=== PATIENT | female | born 1950 | race Caucasian/White ===

== ENCOUNTER 2016-12-07 07:33 | Inpatient (IN) | payer MEDICARE ==
[~2016-12-07] VITALS: Ht 154.9 cm; Wt 71.2 kg
--- NOTE | 2016-12-07 06:34 | PREOP HP ---
DATE OF SERVICE: 12/07/2016 DATE OF SURGERY: 12/07/2016. HISTORY OF PRESENT ILLNESS: The patient is a pleasant 66-year-old who is having difficulty with left-sided low back pain along with pain with radiation to her hip and left posterior lateral thigh. The problem started about 3 months ago spontaneously. She rates her pain and discomfort as 5/10. Sitting seems to make the pain worse. She has difficulty obtaining relief. She takes Percocet and gabapentin. There is no significant problem on the right side. She finds that she is unable to walk any distance at all because of significant pain. PAST MEDICAL HISTORY: Asthma, COPD, emphysema, shingles. PAST SURGICAL HISTORY: Hysterectomy in 1974, food poisoning in ____. FAMILY HISTORY: Cancer. 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 . Denies substance abuse. Denies current tobacco use. Drinks alcohol 1-2 times per month. ALLERGIES: SULFA, PENICILLIN, MERCURY, B-TOX, ____ AND IODINE. CURRENT MEDICATIONS: Premarin, Effexor, Symbicort, Spiriva, Percocet, gabapentin. REVIEW OF SYSTEMS: A 12-point review of systems was obtained and is noncontributory except that mentioned above. PHYSICAL EXAMINATION: NEUROSURGERY EXAMINATION: GENERAL APPEARANCE: Alert, pleasant, in no acute distress. HEAD: Normocephalic and atraumatic. SKIN: Warm and dry. MUSCULOSKELETAL: Lumbar paraspinal muscle bulk is normal, restricted range of motion of the lumbar spine, [id number] tenderness of the lower lumbar spine with palpation, normal range of motion of the lower extremities bilaterally. EXTREMITIES: No clubbing, cyanosis, or edema. NEUROLOGIC: Alert and oriented x 3, normal recent and remote memory, strength 5/5 in bilateral lower extremities, reflexes were present and symmetric in the lower extremities bilaterally, positive straight leg raising on the left, negative straight leg raising on the right, forward stooped antalgic gait. IMAGING: Reviewed. I reviewed a lumbar MRI scan. There is a lumbar ____ at the level I labeled L5-S1, which was labeled L4-L5 on the study. There is prominent central and left-sided disk protrusion. ____ measures greater than 1 cm in greatest diameter and is associated with significant mass effect on the left neural foramen. The level I called L4-L5, which is called L3-L4 on the study, there is anterolisthesis, measures 6 mm and is associated with severe central and foraminal stenosis. There are large hypertrophic degenerative facets. The spinal canal is virtually obliterated at this level. ASSESSMENT: 1. Intervertebral disk disorder with radiculopathy, lumbosacral region. 2. Spinal stenosis, lumbar region. 3. Spondylolisthesis, lumbar region. PLAN: ____ significant problem. She had a left lumbar radiculopathy problem at L5-S1 and she has spondylolisthesis with ____ severe stenosis at L4-L5. I recommended lumbar microsurgery on the left at L5-S1 with removal of herniated disk and decompression of the nerve root at that level combined with ____ L4-L5, which will include the majority of facet bilaterally to decompress ____ spondylolisthesis combined with posterolateral fusion. She will need an anterior diskectomy and fusion in addition to ____. I discussed the surgery with her in detail. I outlined the technique of the operation as well as the expected postoperative course. She understands. We will make the arrangements. DEBRA CORRIGAN MD DR: JENNIFER/peyton JOB#: [id number] / [id number]
[~2016-12-07 07:33] MED LIST: BACITRACIN 50,000 UNIT in IV NORMAL SALINE 1000ML BAG 1,000 ML IRR ONE; BUDE10.2 IH; ESTR1.25 PO; GABA-587 PO; IV RINGERS,LACTATED 1000ML 1,000 ML IV SCH; LIDOCAINE 1% 1 ML SYRINGE. ID PRN; ONDANSETRON PF 4 MG/2 ML VIAL. IV PRN; PROCHLORPERAZINE 10 MG/2 ML VIAL. IV PRN; TIOT18CA IH; VANCOMYCIN 1GM IVPB FOR OMNI 250 ML IV PRN; VENL75CA PO; VENTOLIN HFA18 GM INH; fentaNYL PF VIAL 100 MCG/2 ML VIAL IV PRN
[2016-12-07] MEDS ORDERED: BUPIVAC MPF-EPI 0.5%-1:200000 30 ML VIAL. ONE (07:47)
[2016-12-07] MEDS ORDERED: KETOROLAC 60 MG/2 ML INJ FOR OR. ONE (07:47)
[2016-12-07] MEDS ORDERED: GELATIN SPONGE SIZE 100. ONE (07:47)
[2016-12-07] MEDS ORDERED: THROMBIN TOPICAL 20,000 UNIT SPRAY.SYRN KIT TP ONE (07:48)
--- NOTE | 2016-12-07 08:46 | EKG ---
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
[2016-12-07] MEDS: fentaNYL PF VIAL 100 MCG/2 ML VIAL IV PRN ×4 (09:27→18:23)
--- NOTE | 2016-12-07 10:28 | RAD ---
CT of the lumbar spine without contrast, 12/07/2016: History: Lumbar stenosis, herniated disc, brain lab study Noncontrast scans were obtained with multiplanar reconstructions produced. The data was transferred to the operating room to aid in the patient's stereotactically guided surgery. The following findings are delineated: 1. For purposes of this report the lowest obvious disc space will be considered to be L5-S1. Utilizing this number in system, there is a small accessory rib on the right at L1. 2. There is a grade 1 spondylolisthesis at L4-5 due to severe facet joint arthropathy. There is associated disc space narrowing with a vacuum disc phenomena at L4-5. There is moderate broad-based posterior disc protrusion at L4-5. The combination of findings is causing moderate central spinal stenosis and moderate bilateral foraminal encroachment at this level. 3. No significant abnormality is evident at the L1-2 level. 4. At L2-3 there is a small posterior disc protrusion centered just to the right of midline. This produces mild narrowing of the inferior aspect of the right neural foramen at this level. The thecal sac measures 10 mm in AP diameter at the midline. 5. At L3-4 there are moderate hypertrophic degenerative changes involving the facet joints. There is mild posterior disc bulging. The combination of findings causes borderline narrowing of the central spinal canal which measures 9 mm in AP diameter at the midline. There is mild bilateral inferior foraminal narrowing. 6. At L5-S1 there is a mild vacuum disc phenomena. There are moderate hypertrophic degenerative changes involving the facet joints. There is a small to moderate-sized posterior disc protrusion centered just to the left of midline. This is producing mild narrowing of the thecal sac which measures 9 mm in AP diameter at the midline. There is mild to moderate bilateral foraminal encroachment. 7. There is calcific plaquing of the aorta. Colonic diverticula are noted. PQRS Compliance Statement: One or more of the following individualized dose reduction techniques were utilized for this examination: 1. Automated exposure control 2. Adjustment of the mA and/or kV according to patient size 3. Use of iterative reconstruction technique
[2016-12-07] MEDS ORDERED: PROPOFOL 100 ML IV ONE (10:40)
[2016-12-07] MEDS ORDERED: DESFLURANE > 120 MINUTES IH ONE (10:50)
[2016-12-07] MEDS ORDERED: fentaNYL PF VIAL 100 MCG/2 ML VIAL ONE (10:51)
[2016-12-07] MEDS ORDERED: MIDAZOLAM HCL/PF 2 MG/2 ML VIAL. ONE (10:51)
[2016-12-07] MEDS ORDERED: ROCURONIUM 50 MG/5 ML VIAL. ONE (10:51)
[2016-12-07] MEDS ORDERED: GLYCOPYRROLATE 1 MG/5 ML VIAL. ONE (10:51)
[2016-12-07] MEDS ORDERED: NEOSTIGMINE METHYLSULFATE 5 MG/5 ML SYRINGE. ONE (10:51)
[2016-12-07] MEDS ORDERED: REMIFENTANIL 2 MG VIAL. IV ONE (10:51)
[2016-12-07] MEDS ORDERED: PHENYLEPHRINE 10 MG/ML VIAL. ONE ×2 (10:52→15:06)
[2016-12-07] MEDS ORDERED: DEXAMETHASONE SOD PHOS 20 MG/5 ML VIAL. ONE (10:52)
[2016-12-07] MEDS ORDERED: ONDANSETRON PF 4 MG/2 ML VIAL. ONE (10:52)
[2016-12-07] MEDS ORDERED: PROPOFOL 20 ML IV ONE (10:52)
[2016-12-07] MEDS ORDERED: 0.9 % SODIUM CHLORIDE 50 ML VIAL. IJ ONE (10:52)
[2016-12-07] MEDS ORDERED: MINERAL OIL/PETROLATUM,WHITE OPHTH OINT 3.5GM TUBE. ONE (10:52)
[2016-12-07] MEDS ORDERED: LIDOCAINE 2% 100 MG/5 ML SYRINGE. ONE (10:52)
[2016-12-07] MEDS ORDERED: REMIFENTANIL 1 MG VIAL. IV ONE (14:27)
[2016-12-07] MEDS ORDERED: PROPOFOL 50 ML IV ONE (14:42)
[2016-12-07] MEDS: MORPHINE SULFATE 2 MG/ML DISP.SYRIN. IV PRN ×2 (18:01→18:26)
[2016-12-07] MEDS ORDERED: diphenhydrAMINE 50 MG/ML VIAL IV PRN (18:15)
[2016-12-07] MEDS ORDERED: NALOXONE 0.4 MG/ML VIAL. IV PRN (18:15)
[2016-12-07] MEDS ORDERED: ZOLPIDEM 5 MG TABLET. PO PRN (18:15)
[2016-12-07] MEDS ORDERED: diphenhydrAMINE HCL 25 MG CAPSULE PO PRN (18:15)
[2016-12-07] MEDS ORDERED: MAG HYDROX/ALUMINUM HYD/SIMETH 30 ML ORAL.SUSP PO PRN (18:15)
[2016-12-07] MEDS ORDERED: 0.9 % SODIUM CHLORIDE 10 ML DISP.SYRIN. IV PRN (18:15)
[2016-12-07] MEDS ORDERED: MAGNESIUM HYDROXIDE 2,400 MG/30 ML ORAL.SUSP. PO PRN (18:15)
[2016-12-07] MEDS ORDERED: CALCIUM CARBONATE 500 MG TAB.CHEW PO PRN (18:15)
[2016-12-07] MEDS ORDERED: OXYCODONE/APAP 5/325 TABLET. PO PRN ×2 (18:15)
[2016-12-07] MEDS ORDERED: ONDANSETRON PF 4 MG/2 ML VIAL. IV PRN (18:15)
[2016-12-07] MEDS ORDERED: ACETAMINOPHEN 325 MG TABLET. PO PRN (18:15)
[2016-12-07] MEDS: HYDROmorphone 2 MG/ML VIAL IV PRN ×4 (18:49→19:30)
[2016-12-07 19:45] VITALS: BP 131/78
[2016-12-07] MEDS: POTASSIUM CL 20MEQ D5-0.45NACL 1,000 ML IV SCH (19:56)
[2016-12-07 20:00] VITALS: BP 117/66
[2016-12-07] MEDS ORDERED: ALBUTEROL SULFATE 2.5 MG/3 ML NEBU. NEB PRN (20:00)
[2016-12-07 20:15] VITALS: BP_SYST 131; BP_SYST 135; BP_DIAS 78; BP_DIAS 88
[2016-12-07 20:30] VITALS: BP 119/71
[2016-12-07 21:00] VITALS: BP 123/62
[2016-12-07] MEDS ORDERED: NON FORMULARY ITEM (Budesonide/Formoterol Fumarate (Symbicort 160-4.5 Mcg Inhaler) 2 PUFF) IH SCH (21:00)
[2016-12-07] MEDS ORDERED: NON FORMULARY ITEM (Albuterol Sulfate (Ventolin Hfa Inhaler) 2 PUFF) INH SCH (21:00)
[2016-12-07] MEDS: IPRATRPIUM/ALBUTEROL 0.5/2.5MG 3 ML NEBU. NEB SCH (21:37)
[2016-12-07] MEDS: METHOCARBAMOL 750 MG TABLET PO SCH (21:51)
[2016-12-07] MEDS: GABAPENTIN 400 MG CAPSULE. PO SCH (21:51)
[2016-12-07 23:22] VITALS: BP 98/46
[2016-12-08] MEDS ORDERED: VANCOMYCIN 1 GM in IV NORMAL SALINE 250ML 250 ML IV ONE ×2
[2016-12-08 03:15] VITALS: BP 115/60
[2016-12-08 06:22] VITALS: BP 91/52
[2016-12-08] MEDS: BUDESONIDE 0.5 MG/2 ML NEBU. NEB SCH ×2 (07:21→18:14)
[2016-12-08] MEDS: IPRATRPIUM/ALBUTEROL 0.5/2.5MG 3 ML NEBU. NEB SCH ×4 (07:21→18:14)
[2016-12-08] MEDS: DOCUSATE SODIUM 100 MG CAPSULE. PO SCH ×2 (08:05→21:20)
[2016-12-08] MEDS: METHOCARBAMOL 750 MG TABLET PO SCH ×3 (08:05→21:20)
[2016-12-08] MEDS: GABAPENTIN 400 MG CAPSULE. PO SCH ×2 (08:05→21:20)
[2016-12-08] MEDS ORDERED: VENLAFAXINE XR 37.5 MG CAP.ER.24H. PO SCH (09:00)
[2016-12-08] MEDS: POTASSIUM CL 20MEQ D5-0.45NACL 1,000 ML IV SCH ×2 (09:20→22:40)
[2016-12-08] MEDS: VENLAFAXINE XR 37.5 MG CAP.ER.24H. PO SCH (09:36)
[2016-12-08] MEDS ORDERED: OXYCODONE/APAP 7.5/325 TABLET. PO PRN (09:45)
--- NOTE | 2016-12-08 10:08 | PDOC ---
PROGRESS NOTES Subjective Subjective POD #1 up in chair ambulated with PT back/ incisional pain left hip and thigh pain improved but c/o lateral lower leg pain Objective Objective Vital Signs Date Time Temp Pulse Resp B/P Pulse Ox O2 Delivery O2 Flow Rate FiO2 12/08/16 08:32 Nasal Cannula 1.0 12/08/16 08:15 100 12/08/16 07:15 20 12/08/16 06:22 97.5 90 91/52 97.5 Intake and Output 12/08/16 06:59 Intake Total 3560 ml Output Total 775 ml Balance 2785 ml Intake Oral 240 ml IV Total 3050 ml Blood Product IV Normal Saline Flush 270 ml Output Urine Total 675 ml Stool Total 0 ml Estimated Blood Loss 100 ml Physical Exam General: Alert, Oriented X3, Cooperative MUSCULOSKELETAL: Other ([place]ARR[place]) Neuro: Normal speech Psych/Mental Status: Mental status NL Skin: Other (dressing dry and iintact, flat) Assessment Assessment Problems Medical Problems: (1) Spondylolisthesis of lumbar region Status: Acute Plan Plan of Care encouraged increased activity as tolerated Continue PT/ OT LSO likely DC tomorrow Comment Review of Relevant I have reviewed the following items ervin (where applicable) has been applied. Medications Current Medications Ondansetron HCl (Zofran) 4 mg PRN Q6HRS PRN IV NAUSEA/VOMITING; Start 12/07/16 at 07:00; Stop 12/08/16 at 06:59; Status DC Fentanyl Citrate (Fentanyl 2ml Vial) 25 mcg PRN Q5MIN PRN IV MILD PAIN; Start 12/07/16 at 07:00; Stop 12/08/16 at 06:59; Status DC Fentanyl Citrate (Fentanyl 2ml Vial) 50 mcg PRN Q5MIN PRN IV MODERATE PAIN Last administered on 12/07/16 18:23; Start 12/07/16 at 07:00; Stop 12/08/16 at 06:59; Status DC Morphine Sulfate 1 mg 1 mg PRN Q10MIN PRN IV SEVERE PAIN Last administered on 18:26; Start 12/07/16 at 07:00; Stop 12/08/16 at 06:59; Status DC Lactated Ringer's (Iv Lactated Ringers) 1,000 ml @ 0 mls/hr Q0M IV ; Start at 07:00; Stop 12/07/16 at 18:59; Status DC Lidocaine HCl 2 ml PRN 1X PRN ID PRIOR TO IV START; Start 12/07/16 at 07:00; Stop 12/08/16 at 06:59; Status DC Hydromorphone HCl (Dilaudid) 0.5 mg PRN Q10MIN PRN IV SEV PAIN, Second choice Last administered on 12/07/16 19:30; Start 12/07/16 at 07:00; Stop 12/08/16 at 06:59; Status DC Prochlorperazine Edisylate 5 mg 5 mg PACU PRN PRN IV NAUSEA, MRX1; Start at 07:00; Stop 12/08/16 at 06:59; Status DC Bacitracin 80651 unit/Sodium Chloride 1,000 ml @ 1,000 mls/hr 1X PERIOP ONCE IRR Last administered on 12/07/16 12:42; Start 12/07/16 at 06:00; Stop at 06:59; Status DC Vancomycin HCl 250 ml @ 250 mls/hr 1X PREOP PRN IV PRIOR TO PROCEDURE Last administered on 12/07/16 11:55; Start 12/07/16 at 06:00; Stop 12/07/16 at 18:00 ; Status DC Bupivacaine HCl/ Epinephrine Bitart (Sensorcain-Mpf Epi 0.5%-1:[id number]) 30 ml STK -MED ONCE .ROUTE Last administered on 12/07/16 12:42; Start 12/07/16 at 07:47 ; Stop 12/07/16 at 07:48; Status DC Gelatin (Gelfoam Size 100) 1 each STK-MED ONCE .ROUTE Last administered on 12:42; Start 12/07/16 at 07:47; Stop 12/07/16 at 07:48; Status DC Ketorolac Tromethamine (Toradol For Or Only) 60 mg STK-MED ONCE .ROUTE Last administered on 12/07/16 12:42; Start 12/07/16 at 07:47; Stop 12/07/16 at 07:48 ; Status DC Thrombin 79248 unit 20,000 unit STK-MED ONCE TP Last administered on 12/07/16 12:42; Start 12/07/16 at 07:48; Stop 12/07/16 at 07:49; Status DC Propofol (Diprivan) 100 ml @ As Directed STK-MED ONCE IV ; Start 12/07/16 at 10 :40; Stop 12/07/16 at 10:41; Status DC Desflurane (Suprane) 90 ml STK-MED ONCE IH ; Start 12/07/16 at 10:50; Stop 12/07 at 10:51; Status DC Midazolam HCl (Versed) 2 mg STK-MED ONCE .ROUTE ; Start 12/07/16 at 10:51; Stop 12/07/16 at 10:52; Status DC Remifentanil HCl (Ultiva) 2 mg STK-MED ONCE IV ; Start 12/07/16 at 10:51; Stop 12/07/16 at 10:52; Status DC Fentanyl Citrate (Fentanyl 2ml Vial) 100 mcg STK-MED ONCE .ROUTE ; Start at 10:51; Stop 12/07/16 at 10:52; Status DC Glycopyrrolate (Robinul) 1 mg STK-MED ONCE .ROUTE ; Start 12/07/16 at 10:51; Stop 12/07/16 at 10:52; Status DC Neostigmine Methylsulfate 5 mg STK-MED ONCE .ROUTE ; Start 12/07/16 at 10:51; Stop 12/07/16 at 10:52; Status DC Rocuronium Quentin 50 mg 50 mg STK-MED ONCE .ROUTE ; Start 12/07/16 at 10:51; Stop 12/07/16 at 10:52; Status DC Propofol (Diprivan) 20 ml @ As Directed STK-MED ONCE IV ; Start 12/07/16 at 10: 52; Stop 12/07/16 at 10:53; Status DC Lidocaine HCl (Lidocaine HCl 2% Abboject) 100 mg STK-MED ONCE .ROUTE ; Start at 10:52; Stop 12/07/16 at 10:53; Status DC Ondansetron HCl (Zofran) 4 mg STK-MED ONCE .ROUTE ; Start 12/07/16 at 10:52; Stop 12/07/16 at 10:53; Status DC Dexamethasone Sodium Phosphate (Decadron) 20 mg STK-MED ONCE .ROUTE ; Start at 10:52; Stop 12/07/16 at 10:53; Status DC Phenylephrine HCl (Santiago-Synephrine Inj) 10 mg STK-MED ONCE .ROUTE ; Start at 10:52; Stop 12/07/16 at 10:53; Status DC Multi-Ingred Cream/Lotion/Oil/ Oint (Artificial Tears Eye Oint) 7 preeti STK-MED ONCE .ROUTE ; Start 12/07/16 at 10:52; Stop 12/07/16 at 10:53; Status DC Sodium Chloride (Sodium Chloride) 50 ml STK-MED ONCE IJ ; Start 12/07/16 at 10: 52; Stop 12/07/16 at 10:53; Status DC Remifentanil HCl 1 mg 1 mg STK-MED ONCE IV ; Start 12/07/16 at 14:27; Stop 12/07 at 14:28; Status DC Propofol (Diprivan) 50 ml @ As Directed STK-MED ONCE IV ; Start 12/07/16 at 14: 42; Stop 12/07/16 at 14:43; Status DC Phenylephrine HCl (Santiago-Synephrine Inj) 10 mg STK-MED ONCE .ROUTE ; Start at 15:06; Stop 12/07/16 at 15:07; Status DC Non-Formulary Medication 2 puff QID INH FOR ASTHMA; Start 12/07/16 at 21:00; Status UNV Non-Formulary Medication 2 puff BID IH ; Start 12/07/16 at 21:00; Status UNV Estrogens Conjugated (Premarin) 1.25 mg DAILY PO ; Start 12/08/16 at 09:00 Gabapentin (Neurontin) 400 mg BID PO Last administered on 12/08/16 08:05; Start 12/07/16 at 21:00 Albuterol/ Ipratropium (Duoneb) 3 ml RTQID NEB Last administered on 12/08/16 07:21; Start 12/07/16 at 20:00 Venlafaxine HCl (Effexor Xr) 75 mg DAILY PO ; Start 12/08/16 at 09:00; Stop at 09:00; Status DC Fentanyl Citrate 50 mcg 50 mcg PRN Q2HR PRN IV PAIN Last administered on 00:00; Start 12/07/16 at 18:15 Vancomycin HCl/ Sodium Chloride (Iv Sodium Chloride 0.9% 250ml) 250 ml @ 250 mls/hr 1X ONCE IV Last administered on 12/07/16 23:53; Start 12/08/16 at 00: 00; Stop 12/08/16 at 00:59; Status DC Acetaminophen (Tylenol) 650 mg PRN Q6HRS PRN PO MILD PAIN / TEMP; Start at 18:15 Al Hydroxide/Mg Hydroxide (Mylanta Plus Xs) 30 ml PRN Q3HRS PRN PO HEARTBURN / GAS; Start 12/07/16 at 18:15 Calcium Carbonate/ Glycine (Tums) 500 mg PRN Q3HRS PRN PO INDIGESTION; Start at 18:15 Diphenhydramine HCl (Benadryl) 25 mg PRN Q6HRS PRN PO ITCHING; Start 12/07/16 at 18:15 Diphenhydramine HCl (Benadryl) 25 mg PRN Q6HRS PRN IV ITCHING; Start 12/07/16 at 18:15 Zolpidem Tartrate (Ambien) 5 mg PRN QHS PRN PO INSOMNIA, MAY REPEAT IN 1HR; Start 12/07/16 at 18:15 Naloxone HCl (Narcan) 0.1 mg PRN Q2MIN PRN IV ADMIN; Start 12/07/16 at 18:15 Sodium Chloride 3 ml 3 ml QSHIFT PRN IV AFTER MEDS AND BLOOD DRAWS; Start 12/07 at 18:15 Potassium Chloride/Dextrose/ Sod Cl (KCl 20 Meq In D5W-1/2 NS) 1,000 ml @ 75 mls/hr [id number] IV Last administered on 12/07/16 19:56; Start 12/07/16 at 20:00 Oxycodone/ Acetaminophen (Percocet 5/325) 1 tab PRN Q4HRS PRN PO MILD PAIN, 1ST CHOICE Last administered on 12/08/16 03:29; Start 12/07/16 at 18:15; Stop 12/08/16 at 09:44; Status DC Oxycodone/ Acetaminophen (Percocet 5/325) 2 tab PRN Q4HRS PRN PO MODERATE PAIN , SEVERE PAIN Last administered on 12/08/16 07:15; Start 12/07/16 at 18:15; Stop 12/08/16 at 09:44; Status DC Methocarbamol (Robaxin) 750 mg TID PO Last administered on 12/08/16 08:05; Start 12/07/16 at 21:00 Docusate Sodium (Colace) 100 mg BID PO Last administered on 12/08/16 08:05; Start 12/08/16 at 09:00 Magnesium Hydroxide (Milk Of Magnesia) 2,400 mg PRN Q12HR PRN PO CONSTIPATION; Start 12/07/16 at 18:15 Ondansetron HCl (Zofran) 4 mg PRN Q6HRS PRN IV NAUESA, 1ST CHOICE; Start at 18:15 Albuterol Sulfate (Ventolin Neb Soln) 2.5 mg PRN QID PRN NEB SHORTNESS OF BREATH; Start 12/07/16 at 20:00 Budesonide (Pulmicort) 0.5 mg RTBID NEB Last administered on 12/08/16 07:21; Start 12/08/16 at 08:00 Venlafaxine HCl (Effexor Xr) 150 mg DAILY PO Last administered on 12/08/16 09: 36; Start 12/08/16 at 09:00 Oxycodone/ Acetaminophen (Percocet 7.5/ 325) 1 tab PRN Q4HRS PRN PO MILD-MOD PAIN; Start 12/08/16 at 09:45 Oxycodone/ Acetaminophen (Percocet 7.5/ 325) 2 tab PRN Q4HRS PRN PO SEVERE PAIN ; Start 12/08/16 at 09:45 Active Scripts Active Reported Gabapentin 400 Mg Capsule 400 Mg PO BID Effexor Xr (Venlafaxine Hcl) 75 Mg Cap.er.24h 90 Mg PO DAILY Premarin (Estrogens, Conjugated) 1.25 Mg Tablet 1 Tab PO DAILY Spiriva (Tiotropium Quentin) 18 Mcg Cap.w.dev 2 Inh IH DAILY Symbicort 160-4.5 Mcg Inhaler (Budesonide/Formoterol Fumarate) 10.2 Gm Hfa.aer.ad 2 Puff IH BID Ventolin Hfa Inhaler (Albuterol Sulfate) 18 Gm Hfa.aer.ad 2 Puff INH QID Vitals/I & O Vital Sign - Last 24 Hours 12/07/16 12/07/16 12/07/16 12/07/16 10:16 17:45 17:45 18:00 Temp 98.9 98.9 Pulse 104 104 Resp 21 B/P 152/37 137/59 Pulse Ox 96 100 97 O2 Delivery Room Air Simple Mask Mask Simple Mask O2 Flow Rate 10 10 10 12/07/16 12/07/16 12/07/16 12/07/16 18:01 18:09 18:15 18:15 Pulse 114 Resp 21 B/P 145/75 Pulse Ox 98 98 96 O2 Delivery Simple Mask Simple Mask Simple Mask Nasal Cannula O2 Flow Rate 10.0 10.0 10 3 12/07/16 12/07/16 12/07/16 12/07/16 18:23 18:26 18:30 18:45 Pulse 108 98 Resp 21 20 20 20 B/P 134/56 148/70 Pulse Ox 98 98 94 93 O2 Delivery Simple Mask Simple Mask Nasal Cannula Nasal Cannula O2 Flow Rate 10.0 10.0 3 3 12/07/16 12/07/16 12/07/16 12/07/16 18:49 19:00 19:02 19:15 Temp 98.5 98.5 Pulse 102 98 Resp 20 18 20 18 B/P 119/69 145/67 Pulse Ox 94 96 94 96 O2 Delivery Nasal Cannula Nasal Cannula Nasal Cannula Nasal Cannula O2 Flow Rate 3.0 3 3.0 3 12/07/16 12/07/16 12/07/16 12/07/16 19:20 19:30 19:45 20:00 Temp 97.6 97.6 Pulse 108 106 Resp 16 B/P 131/78 117/66 Pulse Ox 94 94 94 94 O2 Delivery Nasal Cannula Nasal Cannula Nasal Cannula Nasal Cannula O2 Flow Rate 3.0 3.0 3.0 3.0 12/07/16 12/07/16 12/07/16 12/07/16 20:15 20:15 20:15 20:30 Temp 97.6 97.6 Pulse 100 108 105 Resp B/P 135/88 131/78 119/71 Pulse Ox 94 94 90 O2 Delivery Nasal Cannula Nasal Cannula Nasal Cannula Nasal Cannula O2 Flow Rate 3.0 3.0 3.0 3.0 12/07/16 12/07/16 12/07/16 12/08/16 21:00 21:37 23:22 00:00 Pulse 101 103 Resp 16 17 20 B/P 123/62 98/46 Pulse Ox 92 94 O2 Delivery Nasal Cannula Nasal Cannula Nasal Cannula Nasal Cannula O2 Flow Rate 3.0 3.0 3.0 3.0 12/08/16 12/08/16 12/08/16 12/08/16 00:30 03:15 03:29 04:30 Pulse 100 Resp 20 16 20 20 B/P 115/60 Pulse Ox 94 O2 Delivery Nasal Cannula Nasal Cannula O2 Flow Rate 3.0 3.0 12/08/16 12/08/16 12/08/16 12/08/16 06:22 07:15 07:22 08:15 Temp 97.5 97.5 Pulse 90 Resp 17 20 B/P 91/52 Pulse Ox 98 100 100 O2 Delivery Nasal Cannula Nasal Cannula Nasal Cannula O2 Flow Rate 3.0 3.0 1.0 12/08/16 08:32 O2 Delivery Nasal Cannula O2 Flow Rate 1.0 Intake and Output 12/07/16 12/07/16 12/08/16 14:59 22:59 06:59 Intake Total 250 ml 2800 ml 510 ml Output Total 475 ml 300 ml Balance 250 ml 2325 ml 210 ml DEBRA CORRIGAN MD Dec 08, 2016 10:08
[2016-12-08 11:07] VITALS: BP 114/68
[2016-12-08] MEDS: ESTROGENS, CONJUGATED 0.625 MG TABLET PO SCH (12:02)
[2016-12-08] MEDS: OXYCODONE/APAP 7.5/325 TABLET. PO PRN ×2 (12:04→17:23)
[2016-12-08 15:15] VITALS: BP 103/51
[2016-12-08 18:00] VITALS: BP 99/54
[2016-12-08] MEDS: fentaNYL PF VIAL 100 MCG/2 ML VIAL IV PRN ×2 (19:04)
[2016-12-08 23:11] VITALS: BP 103/47
[2016-12-09 03:24] VITALS: BP 102/75
[2016-12-09 06:10] VITALS: BP 107/61
[2016-12-09] MEDS: IPRATRPIUM/ALBUTEROL 0.5/2.5MG 3 ML NEBU. NEB SCH ×4 (07:11→20:07)
[2016-12-09] MEDS: BUDESONIDE 0.5 MG/2 ML NEBU. NEB SCH ×2 (07:11→20:07)
[2016-12-09] MEDS: fentaNYL PF VIAL 100 MCG/2 ML VIAL IV PRN (07:34)
[2016-12-09] MEDS: METHOCARBAMOL 750 MG TABLET PO SCH ×3 (08:44→21:06)
[2016-12-09] MEDS: ESTROGENS, CONJUGATED 0.625 MG TABLET PO SCH (08:44)
[2016-12-09] MEDS: VENLAFAXINE XR 37.5 MG CAP.ER.24H. PO SCH (08:45)
[2016-12-09] MEDS: DOCUSATE SODIUM 100 MG CAPSULE. PO SCH ×2 (08:45→21:06)
[2016-12-09] MEDS: GABAPENTIN 400 MG CAPSULE. PO SCH ×2 (08:45→21:06)
[2016-12-09] MEDS: OXYCODONE/APAP 7.5/325 TABLET. PO PRN (08:46)
--- NOTE | 2016-12-09 10:03 | PDOC ---
PROGRESS NOTES Subjective Subjective resting in bed c/o left lateral thigh pain and incisional pain denies SOA Objective Objective Vital Signs Date Time Temp Pulse Resp B/P Pulse Ox O2 Delivery O2 Flow Rate FiO2 12/09/16 08:46 16 93 Nasal Cannula 2.0 12/09/16 06:10 99.4 105 107/61 99.4 Intake and Output 12/09/16 07:00 Intake Total 920 ml Output Total 370 ml Balance 550 ml Intake Oral 920 ml Output Urine Total 370 ml # Voids 3 Physical Exam General: Alert, Oriented X3, Cooperative Lungs: Other (2 L NC) MUSCULOSKELETAL: Other ([place]) Neuro: Normal speech Skin: Other (dressing C,D,I, flat) Assessment Assessment Problems Medical Problems: (1) Spondylolisthesis of lumbar region Status: Acute Plan Plan of Care increased oxycodone add Medrol dose pack Chest X ray encouraged DB and C/ IS Comment Review of Relevant I have reviewed the following items ervin (where applicable) has been applied. Medications Current Medications Ondansetron HCl (Zofran) 4 mg PRN Q6HRS PRN IV NAUSEA/VOMITING; Start 12/07/16 at 07:00; Stop 12/08/16 at 06:59; Status DC Fentanyl Citrate (Fentanyl 2ml Vial) 25 mcg PRN Q5MIN PRN IV MILD PAIN; Start 12/07/16 at 07:00; Stop 12/08/16 at 06:59; Status DC Fentanyl Citrate (Fentanyl 2ml Vial) 50 mcg PRN Q5MIN PRN IV MODERATE PAIN Last administered on 12/07/16 18:23; Start 12/07/16 at 07:00; Stop 12/08/16 at 06:59; Status DC Morphine Sulfate 1 mg 1 mg PRN Q10MIN PRN IV SEVERE PAIN Last administered on 18:26; Start 12/07/16 at 07:00; Stop 12/08/16 at 06:59; Status DC Lactated Ringer's (Iv Lactated Ringers) 1,000 ml @ 0 mls/hr Q0M IV ; Start at 07:00; Stop 12/07/16 at 18:59; Status DC Lidocaine HCl 2 ml PRN 1X PRN ID PRIOR TO IV START; Start 12/07/16 at 07:00; Stop 12/08/16 at 06:59; Status DC Hydromorphone HCl (Dilaudid) 0.5 mg PRN Q10MIN PRN IV SEV PAIN, Second choice Last administered on 12/07/16 19:30; Start 12/07/16 at 07:00; Stop 12/08/16 at 06:59; Status DC Prochlorperazine Edisylate 5 mg 5 mg PACU PRN PRN IV NAUSEA, MRX1; Start at 07:00; Stop 12/08/16 at 06:59; Status DC Bacitracin 25788 unit/Sodium Chloride 1,000 ml @ 1,000 mls/hr 1X PERIOP ONCE IRR Last administered on 12/07/16 12:42; Start 12/07/16 at 06:00; Stop at 06:59; Status DC Vancomycin HCl 250 ml @ 250 mls/hr 1X PREOP PRN IV PRIOR TO PROCEDURE Last administered on 12/07/16 11:55; Start 12/07/16 at 06:00; Stop 12/07/16 at 18:00 ; Status DC Bupivacaine HCl/ Epinephrine Bitart (Sensorcain-Mpf Epi 0.5%-1:727696) 30 ml STK -MED ONCE .ROUTE Last administered on 12/07/16 12:42; Start 12/07/16 at 07:47 ; Stop 12/07/16 at 07:48; Status DC Gelatin (Gelfoam Size 100) 1 each STK-MED ONCE .ROUTE Last administered on 12:42; Start 12/07/16 at 07:47; Stop 12/07/16 at 07:48; Status DC Ketorolac Tromethamine (Toradol For Or Only) 60 mg STK-MED ONCE .ROUTE Last administered on 12/07/16 12:42; Start 12/07/16 at 07:47; Stop 12/07/16 at 07:48 ; Status DC Thrombin 35764 unit 20,000 unit STK-MED ONCE TP Last administered on 12/07/16 12:42; Start 12/07/16 at 07:48; Stop 12/07/16 at 07:49; Status DC Propofol (Diprivan) 100 ml @ As Directed STK-MED ONCE IV ; Start 12/07/16 at 10 :40; Stop 12/07/16 at 10:41; Status DC Desflurane (Suprane) 90 ml STK-MED ONCE IH ; Start 12/07/16 at 10:50; Stop 12/07 at 10:51; Status DC Midazolam HCl (Versed) 2 mg STK-MED ONCE .ROUTE ; Start 12/07/16 at 10:51; Stop 12/07/16 at 10:52; Status DC Remifentanil HCl (Ultiva) 2 mg STK-MED ONCE IV ; Start 12/07/16 at 10:51; Stop 12/07/16 at 10:52; Status DC Fentanyl Citrate (Fentanyl 2ml Vial) 100 mcg STK-MED ONCE .ROUTE ; Start at 10:51; Stop 12/07/16 at 10:52; Status DC Glycopyrrolate (Robinul) 1 mg STK-MED ONCE .ROUTE ; Start 12/07/16 at 10:51; Stop 12/07/16 at 10:52; Status DC Neostigmine Methylsulfate 5 mg STK-MED ONCE .ROUTE ; Start 12/07/16 at 10:51; Stop 12/07/16 at 10:52; Status DC Rocuronium [place] 50 mg 50 mg STK-MED ONCE .ROUTE ; Start 12/07/16 at 10:51; Stop 12/07/16 at 10:52; Status DC Propofol (Diprivan) 20 ml @ As Directed STK-MED ONCE IV ; Start 12/07/16 at 10: 52; Stop 12/07/16 at 10:53; Status DC Lidocaine HCl (Lidocaine HCl 2% Abboject) 100 mg STK-MED ONCE .ROUTE ; Start at 10:52; Stop 12/07/16 at 10:53; Status DC Ondansetron HCl (Zofran) 4 mg STK-MED ONCE .ROUTE ; Start 12/07/16 at 10:52; Stop 12/07/16 at 10:53; Status DC Dexamethasone Sodium Phosphate (Decadron) 20 mg STK-MED ONCE .ROUTE ; Start at 10:52; Stop 12/07/16 at 10:53; Status DC Phenylephrine HCl ([place]-Synephrine Inj) 10 mg STK-MED ONCE .ROUTE ; Start at 10:52; Stop 12/07/16 at 10:53; Status DC Multi-Ingred Cream/Lotion/Oil/ Oint (Artificial Tears Eye Oint) 7 preeti STK-MED ONCE .ROUTE ; Start 12/07/16 at 10:52; Stop 12/07/16 at 10:53; Status DC Sodium Chloride (Sodium Chloride) 50 ml STK-MED ONCE IJ ; Start 12/07/16 at 10: 52; Stop 12/07/16 at 10:53; Status DC Remifentanil HCl 1 mg 1 mg STK-MED ONCE IV ; Start 12/07/16 at 14:27; Stop 12/07 at 14:28; Status DC Propofol (Diprivan) 50 ml @ As Directed STK-MED ONCE IV ; Start 12/07/16 at 14: 42; Stop 12/07/16 at 14:43; Status DC Phenylephrine HCl ([place]-Synephrine Inj) 10 mg STK-MED ONCE .ROUTE ; Start at 15:06; Stop 12/07/16 at 15:07; Status DC Non-Formulary Medication 2 puff QID INH FOR ASTHMA; Start 12/07/16 at 21:00; Status UNV Non-Formulary Medication 2 puff BID IH ; Start 12/07/16 at 21:00; Status UNV Estrogens Conjugated (Premarin) 1.25 mg DAILY PO Last administered on 08:44; Start 12/08/16 at 09:00 Gabapentin (Neurontin) 400 mg BID PO Last administered on 12/09/16 08:45; Start 12/07/16 at 21:00 Albuterol/ Ipratropium (Duoneb) 3 ml RTQID NEB Last administered on 12/09/16 07:11; Start 12/07/16 at 20:00 Venlafaxine HCl (Effexor Xr) 75 mg DAILY PO ; Start 12/08/16 at 09:00; Stop at 09:00; Status DC Fentanyl Citrate 50 mcg 50 mcg PRN Q2HR PRN IV PAIN Last administered on 07:34; Start 12/07/16 at 18:15 Vancomycin HCl/ Sodium Chloride (Iv Sodium Chloride 0.9% 250ml) 250 ml @ 250 mls/hr 1X ONCE IV Last administered on 12/07/16 23:53; Start 12/08/16 at 00: 00; Stop 12/08/16 at 00:59; Status DC Acetaminophen (Tylenol) 650 mg PRN Q6HRS PRN PO MILD PAIN / TEMP; Start at 18:15 Al Hydroxide/Mg Hydroxide (Mylanta Plus Xs) 30 ml PRN Q3HRS PRN PO HEARTBURN / GAS; Start 12/07/16 at 18:15 Calcium Carbonate/ Glycine (Tums) 500 mg PRN Q3HRS PRN PO INDIGESTION; Start at 18:15 Diphenhydramine HCl (Benadryl) 25 mg PRN Q6HRS PRN PO ITCHING; Start 12/07/16 at 18:15 Diphenhydramine HCl (Benadryl) 25 mg PRN Q6HRS PRN IV ITCHING; Start 12/07/16 at 18:15 Zolpidem Tartrate (Ambien) 5 mg PRN QHS PRN PO INSOMNIA, MAY REPEAT IN 1HR; Start 12/07/16 at 18:15 Naloxone HCl (Narcan) 0.1 mg PRN Q2MIN PRN IV ADMIN; Start 12/07/16 at 18:15 Sodium Chloride 3 ml 3 ml QSHIFT PRN IV AFTER MEDS AND BLOOD DRAWS; Start 12/07 at 18:15 Potassium Chloride/Dextrose/ Sod Cl (KCl 20 Meq In D5W-1/2 NS) 1,000 ml @ 75 mls/hr [id number] IV Last administered on 12/07/16 19:56; Start 12/07/16 at 20:00 Oxycodone/ Acetaminophen (Percocet 5/325) 1 tab PRN Q4HRS PRN PO MILD PAIN, 1ST CHOICE Last administered on 12/08/16 03:29; Start 12/07/16 at 18:15; Stop 12/08/16 at 09:44; Status DC Oxycodone/ Acetaminophen (Percocet 5/325) 2 tab PRN Q4HRS PRN PO MODERATE PAIN , SEVERE PAIN Last administered on 12/08/16 07:15; Start 12/07/16 at 18:15; Stop 12/08/16 at 09:44; Status DC Methocarbamol (Robaxin) 750 mg TID PO Last administered on 12/09/16 08:44; Start 12/07/16 at 21:00 Docusate Sodium (Colace) 100 mg BID PO Last administered on 12/09/16 08:45; Start 12/08/16 at 09:00 Magnesium Hydroxide (Milk Of Magnesia) 2,400 mg PRN Q12HR PRN PO CONSTIPATION; Start 12/07/16 at 18:15 Ondansetron HCl (Zofran) 4 mg PRN Q6HRS PRN IV NAUESA, 1ST CHOICE; Start at 18:15 Albuterol Sulfate (Ventolin Neb Soln) 2.5 mg PRN QID PRN NEB SHORTNESS OF BREATH; Start 12/07/16 at 20:00 Budesonide (Pulmicort) 0.5 mg RTBID NEB Last administered on 12/09/16 07:11; Start 12/08/16 at 08:00 Venlafaxine HCl (Effexor Xr) 150 mg DAILY PO Last administered on 12/09/16 08: 45; Start 12/08/16 at 09:00 Oxycodone/ Acetaminophen (Percocet 7.5/ 325) 1 tab PRN Q4HRS PRN PO MILD-MOD PAIN Last administered on 12/08/16 21:21; Start 12/08/16 at 09:45; Stop at 09:51; Status DC Oxycodone/ Acetaminophen (Percocet 7.5/ 325) 2 tab PRN Q4HRS PRN PO SEVERE PAIN Last administered on 12/09/16 08:46; Start 12/08/16 at 09:45; Stop at 09:51; Status DC Oxycodone HCl (Roxicodone) 10 mg PRN Q4HRS PRN PO PAIN; Start 12/09/16 at 10:00 Methylprednisolone (Medrol) 8 mg BID PO ; Start 12/09/16 at 10:30; Stop at 21:01 Methylprednisolone (Medrol) 4 mg BIDPCLD PO ; Start 12/09/16 at 12:30; Stop at 17:31 Methylprednisolone (Medrol) 4 mg TIDPC PO ; Start 12/10/16 at 08:30; Stop at 17:31 Methylprednisolone (Medrol) 8 mg QHS PO ; Start 12/10/16 at 21:00; Stop at 21:01 Methylprednisolone (Medrol) 4 mg QIDAFTMEAL PO ; Start 12/11/16 at 09:00; Stop 12/11/16 at 21:01 Methylprednisolone (Medrol) 4 mg TID PO ; Start 12/12/16 at 09:00; Stop at 21:01 Methylprednisolone (Medrol) 4 mg BID PO ; Start 12/13/16 at 09:00; Stop at 21:01 Methylprednisolone (Medrol) 4 mg DAILY PO ; Start 12/14/16 at 09:00; Stop at 09:01 Active Scripts Active Reported Gabapentin 400 Mg Capsule 400 Mg PO BID Effexor Xr (Venlafaxine Hcl) 75 Mg Cap.er.24h 90 Mg PO DAILY Premarin (Estrogens, Conjugated) 1.25 Mg Tablet 1 Tab PO DAILY Spiriva (Tiotropium [place]) 18 Mcg Cap.w.dev 2 Inh IH DAILY Symbicort 160-4.5 Mcg Inhaler (Budesonide/Formoterol Fumarate) 10.2 Gm Hfa.aer.ad 2 Puff IH BID Ventolin Hfa Inhaler (Albuterol Sulfate) 18 Gm Hfa.aer.ad 2 Puff INH QID Vitals/I & O Vital Sign - Last 24 Hours 12/08/16 12/08/16 12/08/16 12/08/16 11:07 11:12 12:04 13:00 Temp 97.5 97.5 Pulse 101 Resp 18 16 16 B/P 114/68 Pulse Ox 97 94 O2 Delivery Room Air Room Air 12/08/16 12/08/16 12/08/16 12/08/16 14:55 15:15 17:23 18:00 Temp 98.3 97.6 98.3 97.6 Pulse 90 100 Resp 18 16 16 B/P 103/51 99/54 Pulse Ox 94 96 97 O2 Delivery Room Air Room Air Room Air Room Air 12/08/16 12/08/16 12/08/16 12/08/16 18:15 19:04 21:21 23:11 Temp 99.4 99.4 Pulse 117 Resp 24 16 15 B/P 103/47 Pulse Ox 95 98 O2 Delivery Room Air Room Air Room Air 12/09/16 12/09/16 12/09/16 12/09/16 03:24 06:10 07:13 07:34 Temp 97.5 99.4 97.5 99.4 Pulse 125 105 Resp 15 20 16 B/P 102/75 107/61 Pulse Ox 94 93 93 O2 Delivery Room Air Nasal Cannula Nasal Cannula Nasal Cannula O2 Flow Rate 4.0 4.0 2.0 12/09/16 12/09/16 08:00 08:46 Resp 16 16 Pulse Ox 93 O2 Delivery Nasal Cannula Nasal Cannula O2 Flow Rate 2.0 2.0 Intake and Output 12/08/16 12/08/16 12/09/16 15:00 23:00 07:00 Intake Total 280 ml 240 ml 400 ml Output Total 250 ml 120 ml Balance 280 ml -10 ml 280 ml TAIWO GREGORY APRN Dec 09, 2016 10:03
[2016-12-09 11:15] VITALS: BP 98/45
[2016-12-09] MEDS: methylPREDNISolone 4 MG TABLET. PO SCH ×4 (11:54→21:06)
[2016-12-09] MEDS: OXYCODONE IR 5 MG TABLET. PO PRN ×2 (11:58→17:34)
[2016-12-09] MEDS: POTASSIUM CL 20MEQ D5-0.45NACL 1,000 ML IV SCH (12:00)
[2016-12-09 15:00] VITALS: BP 117/70
--- NOTE | 2016-12-09 15:07 | RAD ---
Chest, 2 views, 12/09/2016: History: COPD Comparison is made to a study from 11/23/2014. Emphysematous changes are present, most severe in the right upper lobe. The heart size is normal. No pulmonary infiltrate is seen. There is blunting of the right lateral costophrenic angle compatible with scarring versus a small amount of pleural fluid. There is no evidence of pneumothorax. IMPRESSION: 1. Emphysema. 2. Probable scarring in the right lateral costophrenic angle. 3. No acute infiltrates.
[2016-12-09 18:25] VITALS: BP 125/67
[2016-12-10] MEDS: POTASSIUM CL 20MEQ D5-0.45NACL 1,000 ML IV SCH (01:20)
[2016-12-10 05:15] VITALS: BP 129/65
--- NOTE | 2016-12-10 05:54 | CONS ---
DATE OF CONSULTATION: 12/09/2016 ATTENDING PHYSICIAN: Dr. Tj Israel. REASON FOR CONSULTATION: The patient was seen in pulmonary consultation at the request of Dr. Israel for hypoxemia. HISTORY OF PRESENT ILLNESS: A patient is a 66-year-old that presented with radiculopathy in the lumbosacral region. She underwent surgical intervention. Postop, she was noted to have O2 saturations below 88%. She was placed on oxygen supplementation. I was asked to see her in consultation. The patient denies any productive cough. No fever or chills prior to admission. She denied any increasing shortness of breath. PAST MEDICAL HISTORY: Remarkable for severe COPD and nocturnal hypoxemia. She normally sees my partner, Dr. Guzman in the office. She had refused oxygen setup in the past. In addition, she has a history of shingles. PAST SURGICAL HISTORY: Status post hysterectomy. FAMILY HISTORY: Remarkable for cancer. 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 Occasional use of alcohol. ALLERGIES: LISTED TO SULFA, PENICILLIN, IODINE, AND BOTULINUM TOXIN. CURRENT MEDICATIONS: List was reviewed. At home, she was on Symbicort, Spiriva, and Respimat. REVIEW OF SYSTEMS: As indicated above, otherwise, a 10-point system was reviewed and negative. PHYSICAL EXAMINATION: VITAL SIGNS: Stable. O2 saturation was greater than 92%. HEENT: Eyes - the sclerae were nonicteric. NECK: Jugular venous distention was not elevated. No lymphadenopathy. CHEST: Full expansion. LUNGS: Adequate airway flow, no wheezes. CARDIOVASCULAR: Regular rate and rhythm with S1 and S2, no S3. ABDOMEN: Soft, nontender, and nondistended. EXTREMITIES: No clubbing, cyanosis, or edema. NEUROLOGIC: The patient was awake, alert, and following commands. A detailed neuro exam was not performed. IMAGING: Chest x-ray was reviewed, no acute cardiopulmonary process in comparison to the film of 2015. IMPRESSION: 1. Hypoxemia secondary to severe chronic obstructive pulmonary disease. 2. Acute respiratory failure secondary to above. 3. Severe chronic obstructive pulmonary disease of the emphysematous-type. 4. Tobacco use, in remission. 5. Status post-surgical intervention for left lumbar radiculopathy. PLAN: 1. The patient will undergo a 6-minute walk. 2. Continue oxygen supplementation. 3. Discharged home with oxygen and follow up with my partner, Dr. Guzman in 4-6 weeks. I do appreciate the privilege in sharing in the patient's care. ERICA LESTER MD DR: ALESHA/peyton JOB#: [id number] / [id number]
[2016-12-10] MEDS: BUDESONIDE 0.5 MG/2 ML NEBU. NEB SCH (06:54)
[2016-12-10] MEDS: IPRATRPIUM/ALBUTEROL 0.5/2.5MG 3 ML NEBU. NEB SCH ×3 (06:55→15:53)
[2016-12-10] MEDS: OXYCODONE IR 5 MG TABLET. PO PRN ×4 (06:55→12:58)
[2016-12-10] MEDS: DOCUSATE SODIUM 100 MG CAPSULE. PO SCH (07:58)
[2016-12-10] MEDS: methylPREDNISolone 4 MG TABLET. PO SCH ×2 (07:58→12:57)
[2016-12-10] MEDS: METHOCARBAMOL 750 MG TABLET PO SCH ×2 (07:58→14:28)
[2016-12-10] MEDS: GABAPENTIN 400 MG CAPSULE. PO SCH (07:58)
[2016-12-10] MEDS: ESTROGENS, CONJUGATED 0.625 MG TABLET PO SCH (07:58)
[2016-12-10 09:06] VITALS: BP 157/86
[2016-12-10] MEDS: VENLAFAXINE XR 37.5 MG CAP.ER.24H. PO SCH (09:06)
--- NOTE | 2016-12-10 09:10 | PATHOLOGY ---
PATHOLOGY REPORT * * * * * * * * FINAL DIAGNOSIS: "Lumbar disc and decompression": - Fibrocartilage with degenerative changes. - Scant unremarkable fragments of bone, skeletal muscle and fibroadipose tissue. (SKM:luke; d/t: 12/09/2016) REPORT ELECTRONICALLY SIGNED BY: Zunilda Dutta M.D. DATE/TIME: 12/10/2016 09:09 * * * * * * * * GROSS PATHOLOGY: Received in formalin labeled "Kasandra Palma, lumbar disc and decompression" are multiple segments of mora, rubbery, and gritty tissue admixed with bone. The specimen measures 6.9 x 5.0 x 1.4 cm in aggregate dimensions. The tissue is submitted representatively in cassette A1, following decalcification. (CAA; 12/08/2016) INITIAL CPT CODE(S): A; 84850, 87005 Professional services performed by [facility] [place] [address] Technical services performed by [facility] at [address] [place] [address], [facility] [address] [address]. SPECIMEN(S) RECEIVED: A.Lumbar disc and decompression CLINICAL HISTORY: Lumbar herniated disc with radiculopathy, spinal stenosis, spondylolisthesis PATIENT: KASANDRA PALMA /AGE: 1 1950 (Age: 66) PATIENT #: [id number] ALT CASE #: SPECIMEN COLLECTION DATE: 12/07/2016 SPECIMEN RECEIVED DATE: 12/08/2016 [facility] - [address] [place] [address] - PHONE: [phone] * * * END OF REPORT * * *
[2016-12-10 11:52] VITALS: BP 126/70
[2016-12-10] MEDS ORDERED: METH-38 PO (12:13)
[2016-12-10] MEDS ORDERED: OXYC10TA PO (12:13)
[2016-12-10] MEDS ORDERED: METH4TAB2 PO (12:14)
--- NOTE | 2016-12-10 12:35 | DISCH ---
DISCHARGE INSTRUCTIONS Condition on Discharge Condition on Discharge: Stable Activity After Discharge Activity Instructions for Disc: Activity as tolerated, Avoid exertion Bathing Instructions: Shower-keep dressing dry Lifting Instructions after Dis: No heavy lifting, No pulling or pushing, Do not lift >10 pounds Driving Instructions after Dis: No driving for 2 weeks Diet after Discharge Additional Diet Restrictions: resume home meals Wound Incision Care Wound/Incision Care: Ice to area for comfort Other wound/incision instructi: may remove dressing in 48 hrs if dry then jenelle shower- no soaking Contacting the after DC Call your doctor for: Concerns you may have Follow-Up Follow up with: Dr. Corrigan's nurse in 2 weeks [phone] DEBRA CORRIGAN MD Dec 10, 2016 12:35
--- NOTE | 2016-12-10 12:37 | PDOC ---
PROGRESS NOTES Subjective Subjective sitting up in bed eating lunch pain in leg significantly improved back/ incision pain- controlled with medication Objective Objective Vital Signs Date Time Temp Pulse Resp B/P Pulse Ox O2 Delivery O2 Flow Rate FiO2 12/10/16 11:52 97.7 101 18 126/70 96 Room Air 2.0 97.7 Intake and Output 12/10/16 09:00 Intake Total 600 ml Output Total 0 ml Balance 600 ml Intake Oral 600 ml Stool Total 0 ml # Voids 3 Physical Exam General: Alert, Oriented X3, Cooperative, No acute distress MUSCULOSKELETAL: Other (BARRON) Neuro: Normal speech Psych/Mental Status: Mental status NL Skin: Other (dressing dry and intact) Assessment Assessment Problems Medical Problems: (1) Spondylolisthesis of lumbar region Status: Acute Plan Plan of Care may dc home f/u 2 weeks f/u with Dr. Guzman Comment Review of Relevant I have reviewed the following items ervin (where applicable) has been applied. Medications Current Medications Ondansetron HCl (Zofran) 4 mg PRN Q6HRS PRN IV NAUSEA/VOMITING; Start 12/07/16 at 07:00; Stop 12/08/16 at 06:59; Status DC Fentanyl Citrate (Fentanyl 2ml Vial) 25 mcg PRN Q5MIN PRN IV MILD PAIN; Start 12/07/16 at 07:00; Stop 12/08/16 at 06:59; Status DC Fentanyl Citrate (Fentanyl 2ml Vial) 50 mcg PRN Q5MIN PRN IV MODERATE PAIN Last administered on 12/07/16 18:23; Start 12/07/16 at 07:00; Stop 12/08/16 at 06:59; Status DC Morphine Sulfate 1 mg 1 mg PRN Q10MIN PRN IV SEVERE PAIN Last administered on 18:26; Start 12/07/16 at 07:00; Stop 12/08/16 at 06:59; Status DC Lactated Ringer's (Iv Lactated Ringers) 1,000 ml @ 0 mls/hr Q0M IV ; Start at 07:00; Stop 12/07/16 at 18:59; Status DC Lidocaine HCl 2 ml PRN 1X PRN ID PRIOR TO IV START; Start 12/07/16 at 07:00; Stop 12/08/16 at 06:59; Status DC Hydromorphone HCl (Dilaudid) 0.5 mg PRN Q10MIN PRN IV SEV PAIN, Second choice Last administered on 12/07/16 19:30; Start 12/07/16 at 07:00; Stop 12/08/16 at 06:59; Status DC Prochlorperazine Edisylate 5 mg 5 mg PACU PRN PRN IV NAUSEA, MRX1; Start at 07:00; Stop 12/08/16 at 06:59; Status DC Bacitracin 63198 unit/Sodium Chloride 1,000 ml @ 1,000 mls/hr 1X PERIOP ONCE IRR Last administered on 12/07/16 12:42; Start 12/07/16 at 06:00; Stop at 06:59; Status DC Vancomycin HCl 250 ml @ 250 mls/hr 1X PREOP PRN IV PRIOR TO PROCEDURE Last administered on 12/07/16 11:55; Start 12/07/16 at 06:00; Stop 12/07/16 at 18:00 ; Status DC Bupivacaine HCl/ Epinephrine Bitart (Sensorcain-Mpf Epi 0.5%-1:430912) 30 ml STK -MED ONCE .ROUTE Last administered on 12/07/16 12:42; Start 12/07/16 at 07:47 ; Stop 12/07/16 at 07:48; Status DC Gelatin (Gelfoam Size 100) 1 each STK-MED ONCE .ROUTE Last administered on 12:42; Start 12/07/16 at 07:47; Stop 12/07/16 at 07:48; Status DC Ketorolac Tromethamine (Toradol For Or Only) 60 mg STK-MED ONCE .ROUTE Last administered on 12/07/16 12:42; Start 12/07/16 at 07:47; Stop 12/07/16 at 07:48 ; Status DC Thrombin 25052 unit 20,000 unit STK-MED ONCE TP Last administered on 12/07/16 12:42; Start 12/07/16 at 07:48; Stop 12/07/16 at 07:49; Status DC Propofol (Diprivan) 100 ml @ As Directed STK-MED ONCE IV ; Start 12/07/16 at 10 :40; Stop 12/07/16 at 10:41; Status DC Desflurane (Suprane) 90 ml STK-MED ONCE IH ; Start 12/07/16 at 10:50; Stop 12/07 at 10:51; Status DC Midazolam HCl (Versed) 2 mg STK-MED ONCE .ROUTE ; Start 12/07/16 at 10:51; Stop 12/07/16 at 10:52; Status DC Remifentanil HCl (Ultiva) 2 mg STK-MED ONCE IV ; Start 12/07/16 at 10:51; Stop 12/07/16 at 10:52; Status DC Fentanyl Citrate (Fentanyl 2ml Vial) 100 mcg STK-MED ONCE .ROUTE ; Start at 10:51; Stop 12/07/16 at 10:52; Status DC Glycopyrrolate (Robinul) 1 mg STK-MED ONCE .ROUTE ; Start 12/07/16 at 10:51; Stop 12/07/16 at 10:52; Status DC Neostigmine Methylsulfate 5 mg STK-MED ONCE .ROUTE ; Start 12/07/16 at 10:51; Stop 12/07/16 at 10:52; Status DC Rocuronium Harrison 50 mg 50 mg STK-MED ONCE .ROUTE ; Start 12/07/16 at 10:51; Stop 12/07/16 at 10:52; Status DC Propofol (Diprivan) 20 ml @ As Directed STK-MED ONCE IV ; Start 12/07/16 at 10: 52; Stop 12/07/16 at 10:53; Status DC Lidocaine HCl (Lidocaine HCl 2% Abboject) 100 mg STK-MED ONCE .ROUTE ; Start at 10:52; Stop 12/07/16 at 10:53; Status DC Ondansetron HCl (Zofran) 4 mg STK-MED ONCE .ROUTE ; Start 12/07/16 at 10:52; Stop 12/07/16 at 10:53; Status DC Dexamethasone Sodium Phosphate (Decadron) 20 mg STK-MED ONCE .ROUTE ; Start at 10:52; Stop 12/07/16 at 10:53; Status DC Phenylephrine HCl (Santiago-Synephrine Inj) 10 mg STK-MED ONCE .ROUTE ; Start at 10:52; Stop 12/07/16 at 10:53; Status DC Multi-Ingred Cream/Lotion/Oil/ Oint (Artificial Tears Eye Oint) 7 preeti STK-MED ONCE .ROUTE ; Start 12/07/16 at 10:52; Stop 12/07/16 at 10:53; Status DC Sodium Chloride (Sodium Chloride) 50 ml STK-MED ONCE IJ ; Start 12/07/16 at 10: 52; Stop 12/07/16 at 10:53; Status DC Remifentanil HCl 1 mg 1 mg STK-MED ONCE IV ; Start 12/07/16 at 14:27; Stop 12/07 at 14:28; Status DC Propofol (Diprivan) 50 ml @ As Directed STK-MED ONCE IV ; Start 12/07/16 at 14: 42; Stop 12/07/16 at 14:43; Status DC Phenylephrine HCl (Santiago-Synephrine Inj) 10 mg STK-MED ONCE .ROUTE ; Start at 15:06; Stop 12/07/16 at 15:07; Status DC Non-Formulary Medication 2 puff QID INH FOR ASTHMA; Start 12/07/16 at 21:00; Status UNV Non-Formulary Medication 2 puff BID IH ; Start 12/07/16 at 21:00; Status UNV Estrogens Conjugated (Premarin) 1.25 mg DAILY PO Last administered on 07:58; Start 12/08/16 at 09:00 Gabapentin (Neurontin) 400 mg BID PO Last administered on 12/10/16 07:58; Start 12/07/16 at 21:00 Albuterol/ Ipratropium (Duoneb) 3 ml RTQID NEB Last administered on 12/10/16 10:44; Start 12/07/16 at 20:00 Venlafaxine HCl (Effexor Xr) 75 mg DAILY PO ; Start 12/08/16 at 09:00; Stop at 09:00; Status DC Fentanyl Citrate 50 mcg 50 mcg PRN Q2HR PRN IV PAIN Last administered on 07:34; Start 12/07/16 at 18:15 Vancomycin HCl/ Sodium Chloride (Iv Sodium Chloride 0.9% 250ml) 250 ml @ 250 mls/hr 1X ONCE IV Last administered on 12/07/16 23:53; Start 12/08/16 at 00: 00; Stop 12/08/16 at 00:59; Status DC Acetaminophen (Tylenol) 650 mg PRN Q6HRS PRN PO MILD PAIN / TEMP Last administered on 12/09/16 17:32; Start 12/07/16 at 18:15 Al Hydroxide/Mg Hydroxide (Mylanta Plus Xs) 30 ml PRN Q3HRS PRN PO HEARTBURN / GAS; Start 12/07/16 at 18:15 Calcium Carbonate/ Glycine (Tums) 500 mg PRN Q3HRS PRN PO INDIGESTION; Start at 18:15 Diphenhydramine HCl (Benadryl) 25 mg PRN Q6HRS PRN PO ITCHING; Start 12/07/16 at 18:15 Diphenhydramine HCl (Benadryl) 25 mg PRN Q6HRS PRN IV ITCHING; Start 12/07/16 at 18:15 Zolpidem Tartrate (Ambien) 5 mg PRN QHS PRN PO INSOMNIA, MAY REPEAT IN 1HR; Start 12/07/16 at 18:15 Naloxone HCl (Narcan) 0.1 mg PRN Q2MIN PRN IV ADMIN; Start 12/07/16 at 18:15 Sodium Chloride 3 ml 3 ml QSHIFT PRN IV AFTER MEDS AND BLOOD DRAWS Last administered on 12/09/16 21:15; Start 12/07/16 at 18:15 Potassium Chloride/Dextrose/ Sod Cl (KCl 20 Meq In D5W-1/2 NS) 1,000 ml @ 75 mls/hr [id number] IV Last administered on 12/07/16 19:56; Start 12/07/16 at 20:00 Oxycodone/ Acetaminophen (Percocet 5/325) 1 tab PRN Q4HRS PRN PO MILD PAIN, 1ST CHOICE Last administered on 12/08/16 03:29; Start 12/07/16 at 18:15; Stop 12/08/16 at 09:44; Status DC Oxycodone/ Acetaminophen (Percocet 5/325) 2 tab PRN Q4HRS PRN PO MODERATE PAIN , SEVERE PAIN Last administered on 12/08/16 07:15; Start 12/07/16 at 18:15; Stop 12/08/16 at 09:44; Status DC Methocarbamol (Robaxin) 750 mg TID PO Last administered on 12/10/16 07:58; Start 12/07/16 at 21:00 Docusate Sodium (Colace) 100 mg BID PO Last administered on 12/10/16 07:58; Start 12/08/16 at 09:00 Magnesium Hydroxide (Milk Of Magnesia) 2,400 mg PRN Q12HR PRN PO CONSTIPATION; Start 12/07/16 at 18:15 Ondansetron HCl (Zofran) 4 mg PRN Q6HRS PRN IV NAUESA, 1ST CHOICE; Start at 18:15 Albuterol Sulfate (Ventolin Neb Soln) 2.5 mg PRN QID PRN NEB SHORTNESS OF BREATH; Start 12/07/16 at 20:00 Budesonide (Pulmicort) 0.5 mg RTBID NEB Last administered on 12/10/16 06:54; Start 12/08/16 at 08:00 Venlafaxine HCl (Effexor Xr) 150 mg DAILY PO Last administered on 12/10/16 09: 06; Start 12/08/16 at 09:00 Oxycodone/ Acetaminophen (Percocet 7.5/ 325) 1 tab PRN Q4HRS PRN PO MILD-MOD PAIN Last administered on 12/08/16 21:21; Start 12/08/16 at 09:45; Stop at 09:51; Status DC Oxycodone/ Acetaminophen (Percocet 7.5/ 325) 2 tab PRN Q4HRS PRN PO SEVERE PAIN Last administered on 12/09/16 08:46; Start 12/08/16 at 09:45; Stop at 09:51; Status DC Oxycodone HCl (Roxicodone) 10 mg PRN Q4HRS PRN PO PAIN Last administered on 09:13; Start 12/09/16 at 10:00 Methylprednisolone (Medrol) 8 mg BID PO Last administered on 12/09/16 21:06; Start 12/09/16 at 10:30; Stop 12/09/16 at 21:01; Status DC Methylprednisolone (Medrol) 4 mg BIDPCLD PO Last administered on 12/09/16 17: 35; Start 12/09/16 at 12:30; Stop 12/09/16 at 17:31; Status DC Methylprednisolone (Medrol) 4 mg TIDPC PO Last administered on 12/10/16 07:58 ; Start 12/10/16 at 08:30; Stop 12/10/16 at 17:31 Methylprednisolone (Medrol) 8 mg QHS PO ; Start 12/10/16 at 21:00; Stop at 21:01 Methylprednisolone (Medrol) 4 mg QIDAFTMEAL PO ; Start 12/11/16 at 09:00; Stop 12/11/16 at 21:01 Methylprednisolone (Medrol) 4 mg TID PO ; Start 12/12/16 at 09:00; Stop at 21:01 Methylprednisolone (Medrol) 4 mg BID PO ; Start 12/13/16 at 09:00; Stop at 21:01 Methylprednisolone (Medrol) 4 mg DAILY PO ; Start 12/14/16 at 09:00; Stop at 09:01 Active Scripts Active Reported Medrol (Methylprednisolone) 4 Mg Tab.ds.pk 1 Pkg PO UD PRN Robaxin-750 (Methocarbamol) 750 Mg Tablet 1 Tab PO TID PRN last dose at 2pm may take the next dose at 10 pm if needed Oxycodone Hcl 10 Mg Tablet 1-2 Tab PO QID Gabapentin 400 Mg Capsule 400 Mg PO BID lst dose this am next dos onight at bedtime Effexor Xr (Venlafaxine Hcl) 75 Mg Cap.er.24h 150 Mg PO DAILY last dose this am next dose tomorrow am Premarin (Estrogens, Conjugated) 1.25 Mg Tablet 1 Tab PO DAILY last dose this am next dosetoomorrow am Spiriva (Tiotropium Harrison) 18 Mcg Cap.w.dev 2 Inh IH DAILY Meds not given this hospital admission. May resume home medications as approved by Physician. given per nebulizer Symbicort 160-4.5 Mcg Inhaler (Budesonide/Formoterol Fumarate) 10.2 Gm Hfa.aer.ad 2 Puff IH BID Meds not given this hospital admission. May resume home medications as approved by Physician. given nebulizer treatment Ventolin Hfa Inhaler (Albuterol Sulfate) 18 Gm Hfa.aer.ad 2 Puff INH QID Meds not given this hospital admission. May resume home medications as approved by Physician. Vitals/I & O Vital Sign - Last 24 Hours 12/09/16 12/09/16 12/09/16 12/09/16 10:46 11:15 11:58 15:00 Temp 97.4 98.1 97.4 98.1 Pulse 101 102 Resp 18 16 20 B/P 98/45 117/70 Pulse Ox 99 95 O2 Delivery Nasal Cannula Nasal Cannula Nasal Cannula Room Air O2 Flow Rate 2.0 3.0 2.0 12/09/16 12/09/16 12/09/16 12/09/16 17:34 18:25 18:30 19:57 Temp 97.2 97.2 Pulse 101 Resp 20 18 16 B/P 125/67 Pulse Ox 96 O2 Delivery Room Air Nasal Cannula O2 Flow Rate 3.0 3.0 12/09/16 12/09/16 12/09/16 12/10/16 20:07 20:09 20:09 05:15 Temp 97.3 97.3 Pulse 112 102 Resp 24 20 B/P 129/65 Pulse Ox 70 96 96 94 O2 Delivery Room Air Nasal Cannula Nasal Cannula Nasal Cannula O2 Flow Rate 2.0 2.0 2.0 12/10/16 12/10/16 12/10/16 12/10/16 06:55 06:55 07:30 08:00 Resp 20 Pulse Ox 91 94 O2 Delivery Room Air Room Air Nasal Cannula O2 Flow Rate 2.0 12/10/16 12/10/16 12/10/16 12/10/16 08:03 09:06 09:13 10:44 Pulse 108 Resp 16 18 B/P 157/86 Pulse Ox 94 94 91 O2 Delivery Nasal Cannula Room Air Nasal Cannula Room Air O2 Flow Rate 2.0 2.0 12/10/16 11:52 Temp 97.7 97.7 Pulse 101 Resp 18 B/P 126/70 Pulse Ox 96 O2 Delivery Room Air O2 Flow Rate 2.0 Intake and Output 12/09/16 12/10/16 12/10/16 17:00 01:00 09:00 Intake Total 240 ml 360 ml Output Total 0 ml Balance 240 ml 360 ml 0 ml DEBRA CORRIGAN MD Dec 10, 2016 12:37
[2016-12-10] MEDS ORDERED: methylPREDNISolone 4 MG TABLET. PO SCH (21:00)
[2016-12-11] MEDS ORDERED: methylPREDNISolone 4 MG TABLET. PO SCH (09:00)
[2016-12-12] MEDS ORDERED: methylPREDNISolone 4 MG TABLET. PO SCH (09:00)
[2016-12-13] MEDS ORDERED: methylPREDNISolone 4 MG TABLET. PO SCH (09:00)
--- NOTE | 2016-12-13 18:20 | OP ---
DATE OF SURGERY: 12/07/2016 PREOPERATIVE DIAGNOSES: 1. Severe lumbar spinal stenosis with spondylolisthesis, L4-L5. 2. Herniated lumbar disk, left L5-S1, with radiculopathy. OPERATIONS PERFORMED: 1. Lumbar laminectomy, L4-L5; posterior instrumentation, L4-L5, using NuVasive system; and posterolateral fusion, L4-L5, with allograft and autograft bone. 2. Anterior lumbar interbody fusion, L4-L5, with diskectomy, L4-L5 and placement of interbody fusion cage, L4-L5. 3. Hemilaminotomy and microdiskectomy, L5-S1, left. The operation was done with the EMG monitoring, motor evoked potentials, fluoroscopy, and microscopic dissection. CARE DIRECTOR: GERA Powell assisted with the surgery. She has assisted with the decompression as well as the closure. OPERATIVE INDICATIONS: The patient is a very pleasant 66-year-old woman who developed intractable back and predominant left leg pain. The problem was progressive and severe. On imaging studies, she had the above-mentioned findings. I discussed with her the surgery, the risks, the technique and the expected postoperative course. She understands very well and she wishes to go ahead. DESCRIPTION OF PROCEDURE: Following general endotracheal anesthesia, the patient was positioned prone on the Savage table. Her lumbar region was then prepped and draped in standard fashion. YUNIER hose and AV impulse boots were applied for DVT prophylaxis. A microscope was draped. Fluoroscopy was draped and brought into the field. Monitoring was established. Vancomycin 1 gram was given. Using fluoroscopic guidance, an incision was made from L4 through S1. I dissected down through the skin to subcutaneous tissue and began working at L5-S1 where I placed a micro disk retractor at L5-S1 on the left, I brought in the microscope and through the microscope, using the high-speed air drill, I burred down a generous hemilaminotomy. I then trimmed away thickened ligamentum flavum and exposed the dura and the exiting S1 root. I gently retracted the root medially and visualized a herniated lumbar disk, which was partially calcified and partially soft. I incised the ligament annulus. I performed a diskectomy with pituitary rongeurs and as I worked, the region became very well decompressed. I did perform a partial foraminotomy. I fully decompressed the entire region. I did use bone wax as well as a bipolar cautery where necessary. I irrigated and then I continued my dissection superiorly and carried the paraspinal muscles laterally off of L4 and L5 bilaterally and placed self-retaining retractors. Prior to the initiation of the surgery in the right iliac crest, I placed pins and attached the BrainLAB system and the BrainLAB system was initialized. At this point, then I used the BrainLAB system to confirm the pedicles, which I had identified via anatomic landmarks. This accomplished and I drilled into the posterior aspect of the pedicles first in the left hand side and then in the right hand side. I passed a black ball with stimulated EMG monitoring followed by tap left and right at L4-L5. I did close the openings with bone wax. I then, at this time, also exposed posterolaterally the lateral facets as well as the transverse processes of L4 and L5. Using rongeurs followed by the high speed air drill and the microscope, I performed a very generous laminectomy at L4-L5. I saved the spinous processes and laminar bone for use to augment the allograft bone for the fusion. I did drill both above and below the disk space at L4-L5 and I used also the 2.5 x 4 mm Kerrison's to trim bone and thickened ligament away and fully decompress the dura in the entire region. Again, I performed bilateral partial foraminotomies. I, at this point, then placed the pedicle screws in L4-L5 using QianmiVasive system. Screws were 6.5 in diameter. Once these were placed, then I placed the rods and nuts, but did not torque the assembly and I prepared myself for the anterior portion of the surgery. During this time, I did excoriate posterolaterally in the lateral gutters with a high-speed air drill. I placed a Jamshidi needle into the right iliac crest and aspirated 20 mL of bone marrow and used this to augment again the allograft and autograft mixture for the fusion. I placed allograft and autograft bone into each lateral gutter. At this point, I was ready for the anterior operation. I tilted the patient away from me and made an incision in the left flank from an anterolateral oblique approach and I passed the BrainLAB with the guide down to dock at the lateral portion of the pedicle where it comes in contact with the body of L5 and worked slowly superior to this and was able to enter the disk space just medial to the far lateral L4 root. I passed electrode and stimulated and I assured myself that the nerve root was not in vicinity. I passed the K-wire followed by a dilator, followed by a working channel. Through the working channel then, using endplate scrapers and pituitary rongeurs, I performed a very generous diskectomy at L4-L5 anteriorly. Following this, then I passed the dilator, removed with the working channel and then passed the shield to protect the exiting roots and then, placed an interbody fusion cage into which was packed allograft and autograft bone. This was rotated and driven into position. I used a 9-mm cage. I released the cage and when on fluoroscopic images, I confirmed it was in excellent position. I then compressed very slightly on the left side and torqued the danielle and screw assembly. I then torqued the right side. I irrigated copiously. I closed the wound then in layers with absorbable suture. Skin was closed with 4-0 subcuticular stitch. The operation went very well and the patient was taken in excellent condition to the recovery room. I was quite pleased with the surgery. DEBRA CORRIGAN MD DR: JENNIFER/peyton JOB#: [id number] / [id number]
[2016-12-14] MEDS ORDERED: methylPREDNISolone 4 MG TABLET. PO SCH (09:00)
== END 2016-12-10 15:00 | disposition home or self-care (01) | DRG 459 ==
LOC: SURHIP 07:33 → 4 SOUTHEST 19:36
PROVIDERS: ADMIT Neurological Surgery; ATTEND Neurological Surgery
PROC: 0QB00ZZ Excision of Lumbar Vertebra, Open Approach (ICD-10-PCS; 2016-12-07)
PROC: 0SB40ZZ Excision of Lumbosacral Disc, Open Approach (ICD-10-PCS; 2016-12-07)
PROC: 07DS3ZZ Extraction of Vertebral Bone Marrow, Percutaneous Approach (ICD-10-PCS; 2016-12-07)
PROC: 0SG0070 Fusion of Lumbar Vertebral Joint with Autologous Tissue Substitute, Anterior Approach, Anterior Column, Open Approach (ICD-10-PCS; principal; 2016-12-07 11:30)
DX: M43.16 Spondylolisthesis, lumbar region (principal); J96.01 Acute respiratory failure with hypoxia; M54.16 Radiculopathy, lumbar region; M48.06 Spinal stenosis, lumbar region; F17.201 Nicotine dependence, unspecified, in remission; J44.9 Chronic obstructive pulmonary disease, unspecified; Z90.710 Acquired absence of both cervix and uterus; Z86.19 Personal history of other infectious and parasitic diseases; Z79.899 Other long term (current) drug therapy; Z79.1 Long term (current) use of non-steroidal anti-inflammatories (NSAID); Z80.9 Family history of malignant neoplasm, unspecified; Z88.0 Allergy status to penicillin; Z88.2 Allergy status to sulfonamides; Z88.8 Allergy status to other drugs, medicaments and biological substances
CPT/HCPCS: 36415; 71020; 72131; 76000; 80053; 85027; 85610; 85730; 86850; 86900; 86901; 87641; 88304; 88311; 93005; 94250; 94620; 94640; 94760; C1713; G0238; J1100; J1170; J1885; J2250; J2270; J2405; J2704; J2710; J3010; J3370; J3490; J7030; J7050; J7120; J7509; J7620; 97116; 97530; 97535

== ENCOUNTER → 2017-02-26 | Outpatient (CLI) | payer MEDICARE ==
[~2017-02-26] MED LIST changes: -BACITRACIN 50,000 UNIT in IV NORMAL SALINE 1000ML BAG 1,000 ML IRR ONE; -IV RINGERS,LACTATED 1000ML 1,000 ML IV SCH; -LIDOCAINE 1% 1 ML SYRINGE. ID PRN; +METH-38 PO; +METH4TAB2 PO; -ONDANSETRON PF 4 MG/2 ML VIAL. IV PRN; +OXYC10TA PO; -PROCHLORPERAZINE 10 MG/2 ML VIAL. IV PRN; -VANCOMYCIN 1GM IVPB FOR OMNI 250 ML IV PRN; -fentaNYL PF VIAL 100 MCG/2 ML VIAL IV PRN
--- NOTE | 2017-02-26 12:36 | KCIC ---
Indication: Numbness below the left knee, status post lumbar fusion. Time of exam 12 0 9:00 PM AP and lateral views of the lumbar spine were obtained. Curvature is normal. There are postop changes of posterior instrumented fusion with vertical stabilization rods and pedicle screws transfixing L4-5 level. There is mild anterolisthesis of L4 on L5. The hardware appears to be intact. No definite fracture or loosening is seen. The vertebral body heights are maintained. There is some mild degenerative disc disease and disc space narrowing L3-4. IMPRESSION: L4-5 posterior instrumented fusion. No complicating feature is detected. Electronically signed by: Dhiraj Hendrickson MD (02/26/2017 12:33 PM) [id number]
== END | disposition home or self-care (01) ==
LOC: KCIC 11:59
PROVIDERS: ATTEND Neurological Surgery
DX: R20.0 Anesthesia of skin (principal); Z98.1 Arthrodesis status; M43.26 Fusion of spine, lumbar region; M51.36 Other intervertebral disc degeneration, lumbar region
CPT/HCPCS: 72100

== ENCOUNTER → 2017-11-08 | Outpatient (CLI) | payer MEDICARE | END | disposition home or self-care (01) | LOC: KCIC 13:06 | DX: M47.816 Spondylosis without myelopathy or radiculopathy, lumbar region (principal); M48.061 Spinal stenosis, lumbar region without neurogenic claudication; Z98.1 Arthrodesis status | CPT/HCPCS: 72100 ==

== ENCOUNTER → 2017-11-18 | Outpatient (CLI) | payer MEDICARE ==
[2017-11-18] MEDS: IOHEXOL 180 MG/ML 10 ML VIAL. EPI (09:50)
== END | disposition home or self-care (01) ==
LOC: RAD 08:49
DX: M43.16 Spondylolisthesis, lumbar region (principal); M48.061 Spinal stenosis, lumbar region without neurogenic claudication; M47.816 Spondylosis without myelopathy or radiculopathy, lumbar region
CPT/HCPCS: 72132; 72265; Q9965

== ENCOUNTER → 2017-12-09 | Outpatient (CLI) | payer MEDICARE ==
[2017-12-09 14:08] LABS: ADD MAN DIFF? NO
[2017-12-09 14:23] LABS: INR 0.9 (0.8-1.1); PARTIAL THROMBOPLASTIN TIME 19 SEC (24-38); PROTHROMBIN TIME PATIENT 11.5 SEC (11.7-14.0)
[2017-12-09 14:27] LABS: ALBUMIN 3.5 g/dL (3.4-5.0); ALBUMIN/GLOBULIN RATIO 0.8 (1.0-1.7); ALK PHOS 65 U/L (46-116); ALT (SGPT) 98 U/L (14-59); ANION GAP 12 (6-14); AST (SGOT) 91 U/L (15-37); BLOOD UREA NITROGEN 14 mg/dL (7-20); BUN/CREATININE RATIO 13 (6-20); CALCIUM 9.1 mg/dL (8.5-10.1); CARBON DIOXIDE 26 mmol/L (21-32); CHLORIDE 100 mmol/L (98-107); CREATININE 1.1 mg/dL (0.6-1.0); GFR 49.4; GLUCOSE 109 mg/dL (70-99); POTASSIUM 4.4 mmol/L (3.5-5.1); SODIUM 138 mmol/L (136-145); TOTAL BILIRUBIN 0.2 mg/dL (0.2-1.0); TOTAL PROTEIN 8.1 g/dL (6.4-8.2)
[2017-12-09 14:30] LABS: BASO # 0.1 x10^3/uL (0.0-0.2); BASO % 1 % (0-3); EOS # 0.5 x10^3/uL (0.0-0.7); EOS % 5 % (0-3); HEMATOCRIT 40.8 % (36.0-47.0); HEMOGLOBIN 13.7 g/dL (12.0-15.5); LYMPH % 21 % (24-48); MEAN CORPUSCULAR HEMOGLOBIN 31 pg (25-35); MEAN CORPUSCULAR HGB CONC 34 g/dL (31-37); MEAN CORPUSCULAR VOLUME 92 fL (79-100); MONO # 0.8 x10^3/uL (0.0-1.1); MONO % 8 % (0-9); NEUT # 6.5 x10^3uL (1.8-7.7); NEUT % 66 % (31-73); PLATELET COUNT 492 x10^3/uL (140-400); RED BLOOD COUNT 4.44 x10^6/uL (3.50-5.40); RED CELL DISTRIBUTION WIDTH 14.2 % (11.5-14.5); WHITE BLOOD COUNT 9.9 x10^3/uL (4.0-11.0)
[2017-12-10 04:24] LABS: MRSA BY PCR Negative (Negative)
== END | disposition home or self-care (01) ==
LOC: SURGPAT 13:16
DX: Z01.818 Encounter for other preprocedural examination (principal); R94.31 Abnormal electrocardiogram [ECG] [EKG]; Z79.899 Other long term (current) drug therapy
CPT/HCPCS: 36415; 71046; 80053; 85025; 85610; 85730; 87641; 93005

== ENCOUNTER → 2018-03-14 | Outpatient (CLI) | payer MEDICARE | END | disposition home or self-care (01) | LOC: KCIC 15:15 | DX: I70.0 Atherosclerosis of aorta (principal); Z98.890 Other specified postprocedural states | CPT/HCPCS: 72100 ==

== ENCOUNTER → 2018-06-13 | Outpatient (CLI) | payer MEDICARE ==
[2017-12-17 11:50] VITALS: BP 133/64
[~2018-06-13] MED LIST changes: +CYCL10TA2 PO; +DOCU-109 PO
--- NOTE | 2018-06-13 16:57 | KCIC ---
Indication: Postop status post lumbar fusion on December 2017 TECHNIQUE: 2 views of the lumbar spine COMPARISON: None FINDINGS: Status post posterior fusion at L4-S1 with grade 1 anterolisthesis of L4 over L5 and L5 over S1. There is no evidence of hardware fracture. No compression deformities. SI joints within normal limits. Mild multilevel intervertebral disc space narrowing seen. IMPRESSION: Status post posterior fusion as described above with malalignment. No acute compression deformities. Electronically signed by: Melecio Gomez DO (06/13/2018 4:54 PM) [facility]
== END | disposition home or self-care (01) ==
LOC: KCIC 13:03
PROVIDERS: ATTEND Neurological Surgery
DX: M48.061 Spinal stenosis, lumbar region without neurogenic claudication (principal); M43.16 Spondylolisthesis, lumbar region; Z98.1 Arthrodesis status
CPT/HCPCS: 72100

== ENCOUNTER → 2019-03-20 | Outpatient (CLI) | payer MEDICARE ==
[2017-12-17 11:50] VITALS: BP 133/64
[~2019-03-20] MED LIST changes: +BUPIVACAINE MPF 0.25% 10 ML VIAL. ONE; -GABA-587 PO; +GABA-689 PO; +GABA300C18 PO; +methylPREDNISolone ACETATE 80 MG/ML VIAL. ONE
--- NOTE | 2019-03-21 04:47 | PAIN ---
DATE OF SERVICE: 03/20/2019 CHIEF COMPLAINT: Right shoulder pain. HISTORY OF PRESENT ILLNESS: This is a 68-year-old female who presents with history of pain in the right shoulder for about 3 years overall, but worse over the past few months. The patient was doing some exercises at home and at work as well and was doing some exercises with her right arm and shoulder, which she is holding her arm out to the side and making small circles in the area with her hands to get some rotational motion of the shoulder itself and heard a loud pop and pain began in the anterior aspect of the shoulder and the top of the shoulder as well at the same time. The patient reports it has been worse since then, worse with reaching, weightbearing, grabbing items, trying to reach over her head has become almost impossible. She is right handed, which makes it worse with using the right upper extremity. The patient reports no loss of function, but significant fatigability of the right shoulder and arm secondary to the pain. The patient reports it is sharp, stabbing, throbbing, shooting, radiating into the arm and the forearm, especially in the anterior aspect of the deltoid, also the posterior deltoid and biceps on the right. The patient reports it is worse with lifting and weightbearing, wakes her from sleep at least 3-4 times a night especially if she lies on her right side. It does not affect her bowel or bladder control or ability to walk. She is taking Excedrin, Tylenol and Aleve, all of which helped only very minimal amount. The patient did have a trigger point injection at her primary care's office in the posterior shoulder, which did help for about a month, but did not relieve the pain completely. The patient reports no loss of motor function. No left-sided symptoms. PAST MEDICAL HISTORY: Significant for COPD; cigarette smoking, quit 15 years ago; history of shingles; asthma; emphysema. PREVIOUS SURGERIES: Include hysterectomy in 1975, lumbar decompression and fusion in 2017 and hardware replacement in 2018. CURRENT MEDICATIONS: Include Premarin, Effexor, Symbicort, Spiriva inhaler, gabapentin, [id number] Aleve, Tylenol and Excedrin. ALLERGIES: THE PATIENT IS ALLERGIC TO MERCURY, IODINE, SULFA, SHELLFISH AND ALL PENICILLINS. FAMILY HISTORY: Significant for cancers, mesothelioma. SOCIAL HISTORY: The patient drinks alcohol occasionally, very rarely. Does not smoke, quit 15 years ago. Does not use any illegal, illicit or recreational drugs. She is , lives with her spouse, lives locally in [place], [place]. REVIEW OF SYSTEMS: The patient's review of systems is positive for those items mentioned in history of present illness. All systems reviewed and otherwise negative. It is complete, full and well documented on the patient's chart. PHYSICAL EXAMINATION: VITAL SIGNS: The patient's blood pressure is 118/65, pulse is 50, respirations 18, temperature 97.3 degrees Fahrenheit, height is 5 feet, weight is 149 pounds. GENERAL: The patient is awake, alert, oriented, appropriate, very pleasant demeanor. HEENT: Shows normocephalic, atraumatic. Extraocular movements are intact, symmetrical. Oral cavity: Mucous membranes moist and pink. Dentition is intact. NECK: Shows anterior throat supple without palpable lymphadenopathy noted. Swallow reflex is symmetrical. CHEST: Shows normal on inspection. Breath sounds clear to auscultation bilaterally. HEART: Shows S1, S2 clear. No murmurs auscultated. ABDOMEN: Soft, nontender, nondistended. No palpable organomegaly is noted. No rebound or guarding demonstrated. BACK: The patient's back shows spine grossly in the midline, normal-appearing cervical lordotic curvature as well as thoracic kyphotic curvature. Lumbar lordotic curvature is slightly flattened with well-healed surgical scarring noted in the lumbar distribution. The patient's neck shows good rotational motion of cervical spine, both laterally greater than 45 degrees closer to 90 degrees as well as full extension, full forward flexion without significant increase in pain. EXTREMITIES: The patient's upper extremities show deep tendon reflexes at 2+ in the biceps, triceps tendons. 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 Triceps 4/5 on the right, 5/5 on the left. Peripheral pulses are 2+ in radial distribution. No peripheral edema is noted. Upper extremities are warm and dry to touch, equal in color and appearance. The palpation of the anterior shoulder shows significant tenderness over the anterior aspect of the deltoid as well as in the biceps groove of the right shoulder, also tender on the superior aspect of the shoulder over the acromioclavicular joint mildly and the lateral deltoid is also very tender as is the posterior deltoid with direct palpation as well. The patient shows loss of strength with resistance with biceps flexion on the right side secondary to pain, but not with triceps resistance. IMPRESSION: 1. This is a 68-year-old female with a long history of right shoulder pain, worse over the past few months secondary to her exercises and increased activity. 2. History of emphysema and chronic obstructive pulmonary disease. 3. Arthritis. PLAN: Options were discussed with the patient and the patient's spouse who accompanied her to visit today including conservative medical managements, physical therapies and interventional techniques. She elected to pursue interventional techniques. We discussed a right intra-articular shoulder joint injection using anatomical models to describe the procedure. Risks were then discussed including, but not limited to bleeding, infection, possibility of intravascular injection sequelae, spread of local anesthetic and numbness, side effects of steroid medication and poor results regarding pain control as well as exposure of fluoroscopy. The patient understands and wished to proceed. The patient will return to the clinic in approximately 2 weeks for followup. She was counseled on return appointment, activity level and side effects to be aware of. 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 PROCEDURE: An intra-articular shoulder joint injection using C-arm fluoroscopic guidance on the right under sterile prep and drape using local anesthetic. MEDICATION INJECTED: A total of 80 mg of Depo-Medrol plus total of 3 mL of 0.25% bupivacaine after negative aspiration. CONDITION AT DISCHARGE: Stable. The patient tolerated the procedure well, had no complications. FLACO BARTON MD DR: MENDY/peyton JOB#: [id number] / [id number] MATIAS Pitt MD
== END ==
LOC: PNCL 10:26
PROVIDERS: ATTEND Anesthesiology
DX: M19.011 Primary osteoarthritis, right shoulder (principal); J43.9 Emphysema, unspecified; Z90.710 Acquired absence of both cervix and uterus; Z98.890 Other specified postprocedural states; Z88.8 Allergy status to other drugs, medicaments and biological substances; Z88.1 Allergy status to other antibiotic agents; Z88.0 Allergy status to penicillin; Z91.013 Allergy to seafood; Z72.89 Other problems related to lifestyle; Z87.891 Personal history of nicotine dependence
CPT/HCPCS: 20610; 77002; J1040; J3490

== ENCOUNTER → 2019-05-01 | Outpatient (CLI) | payer MEDICARE ==
[2017-12-17 11:50] VITALS: BP 133/64
[~2019-05-01] MED LIST changes: +LISI10TA2 PO
--- NOTE | 2019-05-01 23:02 | PAIN ---
DATE OF SERVICE: 05/01/2019 PAIN CLINIC PROGRESS NOTE DIAGNOSIS: Right shoulder joint pain with osteoarthritis. HISTORY OF PRESENT ILLNESS: The patient is a 68-year-old female who returns for followup status post right intra-articular joint injection on 03/20/2019. The patient reports about 50% improvement for the first week in the pain in the right shoulder, but the pain is now different. It is more in the front of the shoulder and on the top of the shoulder, worse with activity, reaching overhead with her right arm, lifting items with her right arm or reaching out forward. The patient reports tingling, burning, aching, sharp, tight, becoming more constant. The patient reports it awakens her from sleep occasionally, but not every night. The patient reports she was increasing her activity with household activities, especially after the last injection, but the pain is returning only different, more on the top of the shoulder at this time. The patient reports it is an 8 on a scale of 10 at its worst over the past week, 7 on average, 7 at its least and is a 7 today. The patient reports no new motor or sensory deficits, no new bowel or bladder incontinence or other complaints. PHYSICAL EXAMINATION: VITAL SIGNS: The patient's blood pressure is 92/62, pulse is 93, respirations 16, temperature 97.7 degrees Fahrenheit, weight is 149 pounds. GENERAL: The patient is awake, alert, oriented, appropriate, very pleasant demeanor. HEENT: Head is normocephalic, atraumatic. Extraocular movements are intact and symmetrical. Oral cavity: Mucous membranes moist and pink. Dentition is intact. NECK: Shows anterior throat supple without palpable lymphadenopathy noted. Swallow reflex symmetrical. CHEST: Shows normal on inspection. Breath sounds clear to auscultation bilaterally. HEART: Shows S1, S2 clear. No murmurs auscultated are auscultated. ABDOMEN: Soft, nontender, nondistended. No palpable organomegaly is noted. BACK: The patient's back sows spine grossly in the midline. Right shoulder with some significant tenderness over the right acromioclavicular joint with palpation as well as over the anterior biceps insertion region. The anterior shoulder, posterior shoulder is nontender specifically. The patient has good rotational motion with both reaching outward and backwards, but cannot side with abduction. Shows significant tenderness with resistance on the right side at the top of the shoulder consistent with the acromioclavicular joint bursitis. EXTREMITIES: Peripheral pulses are 2+ radial distribution. No peripheral edema is noted. Options were discussed with the patient. The patient's old chart was reviewed as her current medication regimen updated. Current review of systems updated today as well. We will proceed with a right acromioclavicular joint injection today with fluoroscopic guidance. Risks were again discussed including, but not limited to bleeding, infection, possibility of intravascular injection sequelae, spread of local anesthetic and numbness, side effects of steroid medication and poor results regarding pain control. The patient understands and wished to proceed. The patient will return to clinic in approximately 2 weeks for followup. She was counseled on return appointment, activity level and side effects to be aware of. DIAGNOSES: Right shoulder joint pain with osteoarthritis, right shoulder joint. PROCEDURE: Right acromioclavicular joint injections using C-arm fluoroscopic guidance under sterile prep and drape using local anesthetic. MEDICATION INJECTED: 80 mg of Depo-Medrol plus 3 mL of 0.25% bupivacaine. CONDITION AT DISCHARGE: Stable. The patient tolerated the procedure well, had no complications. FLACO BARTON MD DR: MENDY/peyton JOB#: [id number] / [id number]
== END ==
LOC: PNCL 10:30
PROVIDERS: ATTEND Anesthesiology
DX: M19.011 Primary osteoarthritis, right shoulder (principal)
CPT/HCPCS: 20605; 77002; J1040; J3490

== ENCOUNTER → 2019-07-03 | Outpatient (CLI) | payer MEDICARE ==
[2017-12-17 11:50] VITALS: BP 133/64
--- NOTE | 2019-07-03 14:28 | PAIN ---
DATE OF SERVICE: 07/03/2019 PROGRESS NOTE FOR PAIN CLINIC DIAGNOSES: Right shoulder joint pain with osteoarthritis, right shoulder and right biceps tendinitis. HISTORY OF PRESENT ILLNESS: The patient is a 68-year-old female who returns for followup, status post right acromioclavicular joint injection x 2. The patient reports no long lasting decrease in pain, only about 50% improvement for about a week, then the pain returns. The patient reports it is much different, now is on the front of the shoulder, worse with lifting items and bending her elbow on the right side. The patient reports the pain is limiting her daily activities. She is having trouble getting dressed. Sleeping at night is awaking her at least once a night and the patient reports her pain is a 10 on a scale of 10 at its worst for the past week, 9 on average and 9 at its least and is a 9 today, pressure, aching, sharp, shooting, stabbing, tingling, burning, becoming constant, severe at times, on and off with activity, better with resting as she has to prop it up on a ledge when she is resting or even when she is doing daily activities to try and support the shoulder. The patient reports no new motor or sensory deficits, no other complaints. PHYSICAL EXAMINATION: VITAL SIGNS: The patient's blood pressure 109/55, pulse 84, respirations 18, temperature 97.8 degrees Fahrenheit, height is 58 inches, weight is 149 pounds. GENERAL: The patient is awake, alert, oriented, appropriate, very pleasant demeanor. The patient is accompanied by her spouse. HEENT: Head shows normocephalic, atraumatic. Extraocular movements are intact and symmetrical. Oral cavity: Mucous membranes moist and pink. Dentition is intact. NECK: Shows anterior throat supple without palpable lymphadenopathy noted. Swallow reflex symmetrical. CHEST: Shows normal on inspection. Breath sounds are clear bilaterally. HEART: Shows S1, S2 clear. No murmurs auscultated. ABDOMEN: Obese but soft, nontender, nondistended. BACK: Shows spine grossly in the midline. Normal cervical lordotic curvature, slight increase in thoracic kyphosis, and some flattening of lumbar lordotic curvature. EXTREMITIES: The patient's upper extremities show deep tendon reflexes 2+ in the biceps, triceps tendons. Motor exam is approximately 3-4 on a scale of 5 with the right biceps secondary to pain as well as java tech strength. 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 The patient shows tenderness with the resistance and biceps flexion, better with the triceps flexion and the extension. Peripheral pulses are 2+ radial. No peripheral edema is noted bilaterally. Options were discussed with the patient. The patient's old chart was reviewed as her current medication regimen updated. Current review of systems updated today as well and we will proceed with a right biceps tendon injection today with fluoroscopic guidance. Risks were again discussed including, but not limited to bleeding, infection, possibility of intravascular injection sequelae, spread of local anesthetic and numbness, side effects of steroid medication, exposure to fluoroscopy and poor results regarding pain control. The patient understands and wished to proceed. The patient will return to clinic in approximately 2 weeks for followup. She was counseled as to return appointment, activity level and side effects to be aware of. DIAGNOSIS: Right shoulder pain with the right biceps tendinitis. PROCEDURE: Right biceps tendon injection using C-arm fluoroscopic guidance under sterile prep and drape using local anesthetic. MEDICATION INJECTED: A total of 80 mg of Depo-Medrol and 3 mL of 0.25% bupivacaine after negative aspiration. CONDITION AT DISCHARGE: Stable. The patient tolerated the procedure well, had no complications. FLACO BARTON MD DR: MENDY/peyton JOB#: [id number] / [id number]
== END ==
LOC: PNCL 11:08
PROVIDERS: ATTEND Anesthesiology
DX: M75.21 Bicipital tendinitis, right shoulder (principal); M25.511 Pain in right shoulder
CPT/HCPCS: 20550; 77002; J1040; J3490; 20552; 20605

== ENCOUNTER → 2019-08-03 | Outpatient (CLI) | payer MEDICARE ==
[2017-12-17 11:50] VITALS: BP 133/64
[~2019-08-03] MED LIST changes: -BUPIVACAINE MPF 0.25% 10 ML VIAL. ONE; -methylPREDNISolone ACETATE 80 MG/ML VIAL. ONE
--- NOTE | 2019-08-03 13:29 | PAIN ---
DATE OF SERVICE: 08/03/2019 PROGRESS NOTE FOR PAIN CLINIC DIAGNOSES: Right shoulder joint pain with primary osteoarthritis, right shoulder and right biceps tendinitis. HISTORY OF PRESENT ILLNESS: The patient is a 68-year-old female who returns for followup status post right biceps tendon injection as well as right acromioclavicular injection. The patient reports still significant pain, after about 1 week the pain returned, but was doing better about 75% for about 1 week, but the pain returns fairly significantly in the right shoulder, worse with any weightbearing, rotational motion. The patient is unable to abduct the shoulder past about 40 degrees on the right side. The patient reports it is aching, sharp, shooting, tingling, stabbing, becoming radiating into the anterior bicep as well and becoming more constant. The patient reports it is 10 on a scale of 10 at its worst over the past week, 9 on average, 9 at its least and is a 9 today. The patient reports no new motor or sensory deficits, no changes. PHYSICAL EXAMINATION: VITAL SIGNS: The patient's blood pressure is 104/69, pulse 109, respirations 18, temperature 97.8 degrees Fahrenheit, height is 5 feet 8 inches, weight is 147 pounds. GENERAL: The patient is awake, alert, oriented, appropriate, very pleasant demeanor. HEENT: Shows normocephalic, atraumatic. Extraocular movements are intact and symmetrical. Oral cavity: Mucous membranes moist and pink. Dentition is intact. NECK: Shows anterior throat supple without palpable lymphadenopathy noted. Swallow reflex symmetrical. CHEST: Shows normal on inspection. Breath sounds are clear bilaterally. HEART: Shows S1, S2 clear. ABDOMEN: Soft, nontender, nondistended. BACK: Shows spine grossly in the midline, slight exaggerated thoracic kyphosis and minor flattening of lumbar lordotic curvature. EXTREMITIES: The patient's upper extremities show deep tendon reflexes 2+ in the biceps, triceps tendons. 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 Peripheral pulses are 2+ radial distribution. No peripheral edema is noted. The patient has difficulty with abduction and especially with resistance there is no strength with against resistance, abduction of the right shoulder laterally or anteriorly better with posterior displacement. The patient also has some tenderness over the lateral deltoid as well as the anterior deltoid, mildly over the acromioclavicular joint, but mostly posterior in the posterior deltoid and posterior aspect of the glenohumeral joint with palpation. PLAN: Options were discussed with the patient and the patient's spouse who accompanied her to visit today. We will make referral for orthopedic evaluation as the patient has had acromioclavicular joint injection as well as biceps tendon injection without significant improvement and still significant pain in the right shoulder. The patient will see Orthopedics and follow up at this time on as needed basis. FLACO BARTON MD DR: MENDY/peyton JOB#: [id number] / [id number]
== END | disposition home or self-care (01) ==
LOC: PNCL 10:17
PROVIDERS: ATTEND Anesthesiology
DX: M19.011 Primary osteoarthritis, right shoulder (principal); M75.21 Bicipital tendinitis, right shoulder
CPT/HCPCS: G0463

== ENCOUNTER → 2019-10-04 | Outpatient (CLI) | payer MEDICARE ==
[2017-12-17 11:50] VITALS: BP 133/64
[2019-10-04 14:07] LABS: PROTHROMBIN TIME PATIENT 12.8 SEC (11.7-14.0)
== END | disposition home or self-care (01) ==
LOC: SURGPAT 13:11
PROVIDERS: ATTEND Orthopaedic Surgery
DX: Z01.818 Encounter for other preprocedural examination (principal); M12.811 Other specific arthropathies, not elsewhere classified, right shoulder; Z91.013 Allergy to seafood
CPT/HCPCS: 36415; 82306; 85610; 85730; 87641

== ENCOUNTER 2020-07-26 18:21 | Emergency (ER) | payer MEDICARE ==
[~2020-07-26] VITALS: Ht 160 cm; Wt 64.0 kg
[~2020-07-26 18:21] MED LIST changes: +OXYC-325 PO
[2020-07-26] MEDS ORDERED: ONDANSETRON PF 4 MG/2 ML VIAL. IVP ONE (19:15)
[2020-07-26] MEDS ORDERED: LIDOCAINE/EPI/TETRACAINE TOPICAL GEL 3 ML. TP ONE (19:15)
[2020-07-26] MEDS ORDERED: ONDANSETRON ODT 4 MG TAB.RAPDIS. ONE (19:17)
[2020-07-26] MEDS ORDERED: ONDANSETRON ODT 4 MG TAB.RAPDIS. PO ONE (19:30)
--- NOTE | 2020-07-26 19:58 | RAD ---
Exam: CT head and cervical spine without contrast INDICATION: Trauma, right side of head TECHNIQUE: Sequential axial images through the head and cervical spine were obtained without the admi nistration of IV contrast. Comparisons: None FINDINGS: Head: No focal parenchymal lesion or hemorrhage is identified. There is no midline shift or sulcal effaceme nt. Patchy hypodensity in the periventricular white matter. No acute vascular territory infarction is alton ntified. Macias-white distinction is preserved. The ventricular system is within normal limits without compression hydrocephalus. The basal cisterns are well maintained. The visualized portions of the paranasal sinuses and mastoid air cells are well-pneumatized. No acute fractures. Cervical spine: There is straightening of the cervical spine which may positional. Vertebral body heights are well-ma intained. Fracture to the cervical spine is not identified. Multilevel spondylotic change in cervical spine with degenerative disc disease greatest at C4-C5 and C5-C6. Mild bilateral facet arthropathy is noted. Visualized paraspinal soft tissues are unremarkable. IMPRESSION: 1. No acute intracranial abnormality. 2. Negative CT C-spine for acute traumatic injury. Exposure: One or more of the following in the visualized dose reduction techniques were utilized for this examination: 1. Automated exposure control 2. Adjustment of the MA and/or KV according to patient size Use of iterative of reconstructive technique Electronically signed by: Donnell Monet MD (07/26/2020 7:56 PM) [facility]
[2020-07-26] MEDS ORDERED: DIPH,PERTUSS(ACELL),TET VAC/PF 0.5 ML SYRINGE. VAX IM ONE (20:15)
[2020-07-26] MEDS ORDERED: ONDA4TAB7 PO (21:12)
[2020-07-26] MEDS ORDERED: SUMA100T4 PO (21:12)
--- NOTE | 2020-07-26 21:12 | ED.ADGEN ---
Past Medical History Past Medical History: COPD, Depression, Other Additional Past Medical Histor: back pain Past Surgical History: Other Additional Past Surgical Histo: R rotator; back Smoking Status: Former Smoker Alcohol Use: None General Adult EDM: Chief Complaint: TRAUMA ALERT HPI: HPI: Patient is a 69-year-old female who presents to the emergency room after falling down 11 stairs. Patient states that her heel caught on the second step. She is complaining of pain to her right side. She not lose consciousness. She does not have any dizziness. She denies any vomiting. She does have a headache and some nausea. She denies any numbness or weakness. She was able to walk after the incident. Review of Systems: Review of Systems: Complete ROS is negative unless otherwise documented in HPI Current Medications: Current Medications Medications (Trade) Dose Ordered Sig/Kristan Start Time Stop Time Status Last Admin Dose Admin Diphtheria/ Tetanus/Acell Pertussis (ADACEL TDap SYRINGE) 0.5 ml ONCE ONCE 07/26/20 20:15 07/26/20 20:16 DC 07/26/20 20:28 0.5 ML Ondansetron HCl (Zofran Odt) 4 mg 1X ONCE 07/26/20 19:30 07/26/20 19:31 DC 07/26/20 19:25 4 MG Ondansetron HCl (Zofran) 4 mg 1X ONCE 07/26/20 19:15 07/26/20 19:23 DC Sumatriptan Succinate (Imitrex) 25 mg 1X ONCE 07/26/20 20:15 07/26/20 20:16 DC 07/26/20 20:27 25 MG Tetracaine/ Epinephrine/ Lidocaine (Let (Sxib-Sojdmmj-Cvnit) Gel) 3 ml 1X ONCE 07/26/20 19:15 07/26/20 19:16 DC 07/26/20 19:24 3 ML Allergies: Allergies: Allergies Coded Allergies Type Severity Reaction Last Updated Verified shellfish derived Allergy Severe Anaphylaxis 03/20/19 Yes Penicillins Allergy Intermediate 12/16/17 Yes Sulfa (Sulfonamide Antibiotics) Allergy Intermediate Swelling 10/17/19 Yes adhesive tape Allergy Intermediate 10/04/19 Yes iodine Allergy Intermediate 12/16/17 Yes mercury (elemental) Allergy Intermediate 12/16/17 Yes Physical Exam: PE: General: Awake, alert, NAD. Well Nourished, well hydrated. Cooperative HEENT: 2 cm laceration to right mormonism, EOMI, PERRL, airway patent, moist oral mucosa, no nasal septal hematoma, no facial crepitus or deformity Neck: Supple, trachea midline, no C-spine tenderness Respiratory: CTA bilaterally, normal effort, no wheezing/crackles, no crepitus CV: RRR, no murmur, cap refill <2, 2+ bilateral radial/DP pulses GI: Soft, nondistended, nontender, no masses MSK: No obvious deformities, full range of motion of all extremities and joints, pelvis stable and nontender Skin: Warm, dry, abrasion to the right shoulder, left ankle, left knee Neuro: A&O x3, speech NL, sensory and motor grossly intact, no focal deficits Psych: Normal affect, normal mood, not suicidal or homicidal Current Patient Data: Vital Signs: Vital Signs Date Time Temp Pulse Resp B/P (MAP) Pulse Ox O2 Delivery O2 Flow Rate FiO2 07/26/20 21:30 93 18 147/68 (94) 92 Nasal Cannula 4.0 07/26/20 18:44 97.6 97.6 EKG: EKG: [] Heart Score: Risk Factors: Risk Factors: DM, Current or recent (<one month) smoker, HTN, HLP, family history of CAD, obesity. Risk Scores: Score 0 - 3: 2.5% MACE over next 6 weeks - Discharge Home Score 4 - 6: 20.3% MACE over next 6 weeks - Admit for Clinical Observation Score 7 - 10: 72.7% MACE over next 6 weeks - Early Invasive Strategies Radiology/Procedures: Radiology/Procedures: [] Course & Med Decision Making: Course & Med Decision Making Pertinent Labs and Imaging studies reviewed. (See chart for details) Patient is a 69yo elderly female who presents to the ED after a mechanical fall downstairs. On exam, patient has a laceration to right scalp. Due to patient's age and head trauma they cannot be ruled out with ugandan CT head rule and will need a CT head to evaluate for intracranial bleed and a CT cervical spine. No signs of major facial injuries and a CT maxillofacial is not needed at this time. Patient did not have any symptoms concerning for a presyncopal episode. They deny chest pain, palpitations, dizziness, headache, shortness of breath, recent bleeding, numbness/weakness in extremities or face. They do not need a syncope work up at this time. CT is negative. Tetanus was updated. Headache was treated. Patient is feeling much better. Laceration was repaired with cyndi. Patient's test results and vitals while in the ED were fully reviewed and discussed with the patient. Patient is stable and at this time does not need admission to the hospital. We have discussed strict return precautions and the importance of following up with their Primary Care Physician. Patient stated understanding and was given an opportunity to ask any questions. Patient is in agreement with plan. Dragon Disclaimer: Dragon Disclaimer: This electronic medical record was generated, in whole or in part, using a voice recognition dictation system. PROCEDURE Procedure Laceration Repair Performed by: Dedrick Flor MD Consent: obtained verbally from patient. Risks and benefits were discussed prior to consent Time out performed prior to procedure Location: Scalp Length: 2 cm Foreign bodies: No foreign bodies Tendon involvement: none Neurovascularly intact Local anesthetic: none Anesthetic total: none Patient sedated: no Preparation: Patient was prepped and draped in usual sterile fashion. Wound was cleaned extensively with water Amount of clean: normal Deep stitches: no Skin closure: cyndi Number of cyndi: 2 Approximation: closed Approximation difficulty: simple Patient tolerated procedure well Departure Departure Impression: Primary Impression: Closed head injury Additional Impression: Laceration of scalp Disposition: 01 DC HOME SELF CARE/HOMELESS Condition: STABLE Referrals: MATIAS GALLAGHER MD (PCP) Patient Instructions: Head Injury, Adult Scripts Ondansetron Hcl (ZOFRAN) 4 Mg Tablet 1 TAB PO PRN Q6-8HRS for nausea, #12 TAB Prov: DEDRICK FLOR MD 07/26/20 Sumatriptan Succinate (SUMATRIPTAN SUCCINATE) 100 Mg Tablet 1 TAB PO UD, #9 TAB 3 Refills Take 1 tablet. May repeat after 2 hours. No more than 2 tablets per day Prov: DEDRICK FLOR MD 07/26/20 Problem Qualifiers DEDRICK FLOR MD Jul 26, 2020 21:12
[2020-07-26 21:30] VITALS: BP 147/68
== END 2020-07-26 21:35 | disposition home or self-care (01) ==
LOC: ER 18:21
DX: S01.01XA Laceration without foreign body of scalp, initial encounter (principal); S40.011A Contusion of right shoulder, initial encounter; J44.9 Chronic obstructive pulmonary disease, unspecified; F32.9 Major depressive disorder, single episode, unspecified; Z98.890 Other specified postprocedural states; Z91.013 Allergy to seafood; Z88.0 Allergy status to penicillin; Z88.2 Allergy status to sulfonamides; Z91.041 Radiographic dye allergy status; Z88.8 Allergy status to other drugs, medicaments and biological substances; Z87.891 Personal history of nicotine dependence; W10.8XXA Fall (on) (from) other stairs and steps, initial encounter; Y93.89 Activity, other specified; Y92.89 Other specified places as the place of occurrence of the external cause; Y99.8 Other external cause status
CPT/HCPCS: 12001; 70450; 72125; 90471; 90715; 99285

== ENCOUNTER → 2021-07-29 | Outpatient (CLI) | payer BC ==
[~2021-07-29] MED LIST changes: +CYCL10TA19 PO; -CYCL10TA2 PO; +LISI10TA16 PO; -LISI10TA2 PO; +ONDA4TAB7 PO; +REGADENOSON 0.4 MG/5 ML DISP.SYRIN. IV ONE; +SUMA100T4 PO
--- NOTE | 2021-07-29 13:07 | RAD ---
MR#: [id number] Date of Study: 07/29/2021 Ordering Physician: AMI EMMANUEL, Referring Physician: PRUDENCIO LOPEZ Tech: THANIA Jackson APPROVED REPORT Test Type: Pharmacological Stress Nurse/Tech: BELLA BILLINGS Test Indications: CHEST PAIN Cardiac History: SEE EMR Medications: SEE EMR Medical History: COPD ON 4L/O2- SEE EMR Resting ECG: SR- PROLONGED QT Resting Heart Rate: 91 bpm Resting Blood Pressure: 118/74mmHg Pretest Chest Pain: No chest pain Nurse/Tech Notes S1,S2, LUNGS DIMINISHED, PT IS ON 4L O2 PER NC, SATS 97%. VSS. PT DENIES CHEST PAIN AND IS SOA DUE TO HER COPD. Consent: The procedure was explained to the patient in lay terms. Informed consent was witnessed. Reginaldo eout was entered into [employer]. History and Stress Test performed by THANIA Jackson Pharm. Details Pharmacologic stress testing was performed using 0.4mg per 5ml of regadenoson given intravenously ove r 7-10 seconds. Stress Symptoms PT HAD A BRIEF EPISODE OF INCREASED SOA, SYMPTOMS RETURNED TO BASELINE QUICKLY, DENIED CHEST PAIN. VS S. PT TOLERATED WELL. POST EXERCISE Reason for Termination: Infusion complete Max HR: 99 bpm Max Blood Pressure: 133/76mmHg Blood Pressure response to exercise: Normal blood pressure response during stress. Heart Rate response to exercise: WNL Chest Pain: No. Arrhythmia: . NO SIGNIFICANT CHANGE NOTED FROM BASELINE EKG. INTERPRETATION Stress EKG Conclusion: Baseline EKG showed sinus rhythm. No ischemic changes at peak stress. No arr hythmias. Imaging Protocol IMAGE PROTOCOL: Rest Tc-99m/stress Tc-99m 1 day Rest: Stress: Viability: Radiopharm.Tc99m KfagjgmjcOd55m Sestamibi Dose10.8mCi 33mCi Duration 15min. 10min. Img Date 07/29/2021 07/29/2021 Inj-Img [id number]. 60min. Rest Admin Site:IV - Left AntecubitalAdministrator:ANGELY Sigala, ARRT (R)(N) Stress Admin Site: IV - Left AntecubitalAdministrator: THANIA Jackson STRESS DATA End Diast. Vol.46.5mlAv. Heart Rate92.0bpm End Syst. Vol.16.0mlCO Index BSA0.0L/min Myocardial Mass90.5gEject. Imiwudby09.0% Stress Rates Pk. Fill Rate3.71EDV/secLVtime Pk. Fill 154.72msec Pk. Empty Rate4.33ESV/secLVtime Pk. Mxbwr935.33msec / Pk. Fill0.58EDV/sec Stress Scores Regional WT2.00Summed WT12.00 Regional WM0.00Summed WM4.50 Study quality was good. Left Ventricular size was Normal at Rest and Stress. Lung uptake was . Left Ventricular ejection fraction is 73%. The rest and stress images show normal perfusion, normal contraction and thickening. LV Perf. Quant 17 Seg. SSS0.00 17 Seg. SRS0.00 17 Seg. SDS0.00 Stress Defect Extent (% LAD)0.00Rest Defect Extent (% LAD)0.00Rev. Defect Extent (% LAD)0.00 Stress Defect Extent (% LCX) 0.00Rest Defect Extent (% LCX)0.00Rev. Defect Extent (% LCX)0.00 Stress Defect Extent (% RCA)0.00Rest Defect Extent (% RCA)0.00Rev. Defect Extent (% RCA)0.00 Stress Defect Extent (% ANA MARIA)0.00Rest Defect Extent (% ANA MARIA)0.00Rev. Defect Extent (% ANA MARIA)0.00 Conclusion 1. Regadenoson cardioisotope stress test did not show any evidence of ischemia or infarct. 2. Normal left ventricular systolic function with ejection fraction calculated at 73%. 3. Low risk for cardiac events. Signed by : Derek Salter, Electronically Approved : 07/29/2021 13:06:56
== END ==
LOC: NM 08:18
PROVIDERS: ATTEND Internal Medicine Cardiovascular Disease
DX: R07.9 Chest pain, unspecified (principal)
CPT/HCPCS: 78452; 93017; A9500; J2785

== ENCOUNTER → 2021-10-15 | Outpatient (CLI) | payer BC ==
[~2021-10-15] MED LIST changes: -REGADENOSON 0.4 MG/5 ML DISP.SYRIN. IV ONE
--- NOTE | 2021-10-15 16:11 | KCIC ---
MRI BRAIN WO Date: 10/15/2021 2:00 PM Indication: DIFFICULTY WITH BALANCE. Frequent falls, imbalance. Pt has had three major falls, includ ing posterior head trauma recently. Comparison: None. Technique: Multiplanar multisequence MRI of the brain was performed without intravenous contrast usin g the standard protocol. Findings: No acute infarct. No acute or chronic hemorrhage. The ventricles are normal in size and configuration without hydrocephalus. Moderate scattered FLAIR hyperintensities in the subcortical and periventricu lar deep white matter as well as the maxine, likely due to chronic small vessel ischemic disease. Mild generalized cerebral volume loss. The scalp and calvarium are normal. The pituitary and sella are normal. No Chiari malformation. Incom pletely characterized degenerative spondylosis of the visualized upper cervical spine. The visualized orbits and globes are normal. The visualized paranasal sinuses are clear. The mastoid air cells are clear. Normal flow voids within the vertebral, basilar, and internal carotid arteries indicating patency. IMPRESSION: 1. No acute infarct, acute hemorrhage, mass, or hydrocephalus. 2. Moderate chronic small vessel ischemic disease and mild cerebral volume loss. Electronically signed by: Sandeep Sol MD (10/15/2021 4:08 PM) [id number]
== END ==
LOC: KCIC MRI 13:41
PROVIDERS: ATTEND Nurse Practitioner Family
DX: I67.82 Cerebral ischemia (principal); R29.818 Other symptoms and signs involving the nervous system; R26.89 Other abnormalities of gait and mobility
CPT/HCPCS: 70551